=== PATIENT | female | born 1950 | race Caucasian/White ===

== ENCOUNTER → 2020-01-09 09:46 | Outpatient (CLI) | payer MEDICARE, SELFPAY ==
--- NOTE | ~2020-01-09 | XR_ITS ---
EXAMINATION: XR knee LT 3V DATE: 01/09/2020 10:33 INDICATION: Bilateral primary osteoarthritis of knee. TECHNIQUE: 3 views of left knee were obtained. COMPARISON: None. FINDINGS: Bone alignment is normal. No fracture. There is severe osteoarthritis of medial compartment and mild osteoarthritis of lateral and patellofemoral compartments. There is a small knee joint effu lonnie. IMPRESSION: 1. Severe left knee osteoarthritis. 2. Small left knee joint effusion. Reviewed, dictated and finalized at location B.
--- NOTE | ~2020-01-09 | XR_ITS ---
EXAMINATION: XR knee RT 3V DATE: 01/09/2020 10:33 INDICATION: Bilateral primary osteoarthritis of knee. TECHNIQUE: 3 views of right knee were obtained. COMPARISON: None. FINDINGS: Bone alignment is normal. No fracture. There is mild osteoarthritis of medial compartment a nd severe osteoarthritis of lateral and patellofemoral compartments. No knee joint effusion. IMPRESSION: 1. Severe right knee osteoarthritis. Reviewed, dictated and finalized at location B.
== END ==
PROVIDERS: PCP Internal Medicine; Visit Provider Internal Medicine
DX: M17.0 Bilateral primary osteoarthritis of knee (principal); M25.462 Effusion, left knee
CPT/HCPCS: 73562

== ENCOUNTER 2020-01-24 07:34 | Outpatient (CLI) | payer MEDICARE, SELFPAY ==
--- NOTE | ~2020-01-24 | MM_ITS ---
EXAMINATION: MM screening reagan BI w rosalba HISTORY: Screening mammogram, family history of breast cancer in her sister. TECHNIQUE: Craniocaudal and mediolateral oblique 3-D tomosynthesis images were obtained and synthetic 2-D images were generated. CAD analysis was submitted and interpreted. COMPARISON: 12/18/2018, 12/08/2017, 11/09/2016 BREAST PARENCHYMAL COMPOSITION: There are scattered areas of fibroglandular density. FINDINGS: Scattered benign-appearing calcifications are present. There is no evidence of suspicious m ass, calcification, or architectural distortion to suggest malignancy in either breast. There has bee n no suspicious interval change. IMPRESSION: 1. No mammographic evidence of malignancy. 2. Recommend routine screening mammography in one year. BI-RADS Category 2: Benign finding(s). Reviewed, dictated and finalized at location A.
== END 2020-01-24 07:35 | disposition home or self-care (01) ==
PROVIDERS: PCP Internal Medicine; Visit Provider Obstetrics & Gynecology Gynecology
DX: Z12.31 Encounter for screening mammogram for malignant neoplasm of breast (principal)
CPT/HCPCS: 77063; 77067

== ENCOUNTER 2020-01-30 13:00 | Emergency (ER) | payer MEDICARE, SELFPAY ==
[2020-01-30 13:13] VITALS: BP 151/67; PULSE 62; RESP 12; TEMP 37.1; O2SAT 100
--- NOTE | 2020-01-30 13:20 | ED.GENADULT ---
HPI - General Adult General Chief complaint: Skin/Abscess/Foreign Body Stated complaint: insect bite Time Seen by Provider: 01/30/20 13:20 Source: patient and RN notes reviewed Mode of arrival: ambulatory Limitations: no limitations History of Present Illness HPI narrative: 69-year-old female presents with complaints of insect bite, discoloration, swelling, and itching to LT 3rd (middle) finger for 1 day. Karolina says she was outside picking up waste and believes she was bitten by an insect on LT 3rd finger. Her spouse stuck finger this morning with a sterile needle and obtained some fluid (no further drainage) with improvement. Karolina's friend instructed her to seek further care. Denies new detergent, personal hygiene products or laundry detergents. No new foods or medications. No burning or bleeding. Denies fever, chills, headaches, weakness, myalgia, facial swelling, or tongue swelling. Denies dyspnea. Remains active. The patient reports she have not been diagnosed with COVID-19. The patient reports she is not waiting for the results of a COVID-19 lab test. The patient reports she do not have fever, chills, or fatigue. Patient reports she do not have any rhinorrhea, congestion, sore throat, loss of taste, nausea, vomiting, abdominal pain, and diarrhea. Tolerating po intake well. Denies recent traveling. Denies concerns for COVID-19 or exposures been home with limited outdoor exposure except for essential household needs and return home. At this time, patient is not suspected of having COVID-19. Some parts of this dictation were generated by voice recognition software and may contain typographical and/or grammatical inaccuracies. Related Data Home Medications Medication Instructions Recorded Confirmed ergocalciferol (vitamin D2) 50,000 unit PO 05/10/19 unit tablet Allergies Allergy/AdvReac Type Severity Reaction Status Date / Time No Known Allergies Allergy Verified 01/09/20 09:05 Review of Systems Review of Systems: Narrative: CONSTITUTIONAL: Denies fever, chills, sweats. EYES: Denies visual changes, redness, discharge. ENT: Denies rhinorrhea, congestion, sore throat, otalgia. CARDIOVASCULAR: Denies chest pain, palpitations, edema. RESPIRATORY: Denies dyspnea, wheezing, cough. GASTROINTESTINAL: Denies abdominal pain, nausea, vomiting, diarrhea. GENITOURINARY: Denies dysuria, hematuria, abnormal discharge. SKIN: Denies rash. Complaints of insect bite, discoloration, swelling, and itching to LT 3rd (middle) finger. MUSCULOSKELETAL: Denies acute back pain, joint pain, or myalgia. NEUROLOGIC: Denies numbness or focal weakness. PSYCHIATRIC: Denies anxiety or depression. All other systems reviewed are negative, except as documented in HPI and below. [facility] Past Medical History Medical History (Updated 01/31/20 @ 05:09 by PAULA Johnson) Bunion of great toe of right foot delivery delivered X1 Chronic low back pain Depression Elevated blood pressure reading in office without diagnosis of hypertension Hematuria History of hysteroscopy IFG (impaired fasting glucose) Mixed hyperlipidemia Osteoarthritis Osteoarthritis of both hips Post menopausal problems SI (sacroiliac) joint inflammation Surgical History Surgical History (Updated 01/31/20 @ 05:09 by PAULA Johnson) H/O section History of bunionectomy of right great toe History of cystoscopy History of dilation and curettage Family History Family History (Updated 01/30/20 @ 13:50 by PAULA Johnson) Father , Lung cancer-smoker Family history of malignant neoplasm, Onset Age: 57 Mother Family history of thoracic aortic aneurysm, Onset Age: 57 Acute myocardial infarction Social History Social History (Updated 01/30/20 @ 13:51 by PAULA Johnson) Smoking status: Never smoker Alcohol intake: current Substance use: never Living arrangements: with family
== END 2020-01-30 13:39 | disposition home or self-care (01) ==
PROVIDERS: Emergency Provider Nurse Practitioner Family; PCP Internal Medicine
DX: L03.012 Cellulitis of left finger (principal); S60.463A Insect bite (nonvenomous) of left middle finger, initial encounter; W57.XXXA Bitten or stung by nonvenomous insect and other nonvenomous arthropods, initial encounter; E78.2 Mixed hyperlipidemia; M19.90 Unspecified osteoarthritis, unspecified site; M16.0 Bilateral primary osteoarthritis of hip
CPT/HCPCS: 99213; G0463

== ENCOUNTER → 2020-08-18 00:48 | Outpatient (CLI) | payer MEDICARE, SELFPAY ==
[2020-08-18 20:23] LABS: SARS-CoV-2 RNA PCR Negative
== END ==
PROVIDERS: PCP Internal Medicine; Visit Provider Internal Medicine Gastroenterology
DX: Z01.812 Encounter for preprocedural laboratory examination (principal); Z20.822 Contact with and (suspected) exposure to COVID-19
CPT/HCPCS: C9803; U0003; U0005

== ENCOUNTER 2020-08-21 01:06 | Day surgery (SDC) | payer MEDICARE, SELFPAY ==
[2020-08-11 11:32] VITALS: BMI 26.4
[2020-08-21 12:49] VITALS: BP 154/69; PULSE 72; RESP 16; TEMP 37; O2SAT 100; BMI 26.9
[2020-08-21] MEDS: LACTATED RINGERS 1,000 ML 150 ML IV CONT (13:00)
--- NOTE | 2020-08-21 13:38 | WPDANESEPPF ---
Anes - Initial Pre Proc Eval Procedure: Operation Date: 08/21/20 14:00 Proposed Procedures p Screening Colonoscopy - Tad Kaiser MD Date/Time: 08/21/20 13:38 Surgeon: Tad Kaiser MD Pre Op Diagnosis: neoplasm screening Patient Data Age: 70 Gender: F Height: 5 ft 4 in Weight: 71 kg Last Vital Signs Temp 98.6 F 08/21/20 12:49 Pulse 72 08/21/20 12:49 Resp 16 08/21/20 12:49 BP 154/69 H 08/21/20 12:49 Pulse Ox 100 08/21/20 12:49 Allergies Allergy/AdvReac Type Severity Reaction Status Date / Time No Known Allergies Allergy Verified 08/21/20 12:49 Home Medications Medication Instructions Recorded Confirmed Type ergocalciferol (vitamin D2) 50,000 12,500 unit PO DAILY 05/10/19 08/21/20 History unit tablet rosuvastatin 5 mg tablet 5 mg PO DAILY #30 tablet 04/08/20 08/21/20 Rx biotin 10,000 mcg-keratin 100 mg 0 tablet PO DAILY 07/11/20 08/21/20 History tablet norethindrone acetate 1 mg-ethinyl 1 tablet PO DAILY 07/11/20 08/21/20 History estradiol 5 mcg tablet oxybutynin chloride 5 mg tablet 5 mg PO DAILY 07/11/20 08/21/20 History sertraline 100 mg tablet 150 mg PO DAILY #1 tablet 07/11/20 08/21/20 Rx sodium,potassium,mag sulfates 17.5 See Rx Instructions PO .COMPLEX 07/28/20 08/21/20 Rx gram-3.13 gram-1.6 gram oral soln #354 ml ffkjgloidwrs-zip-kvsk-FA-vit K 1 tablet PO DAILY 08/11/20 08/21/20 History [Adults Multivitamin] terbinafine HCl 250 mg PO DAILY 08/11/20 08/21/20 History Patient hx anesthesia problems: none Family hx anesthesia problems: none PMFSH Past Medical History Medical History (Updated 07/11/20 @ 09:18 by Vitaliy Hdz MD) Bunion of great toe of right foot delivery delivered X1 Chronic low back pain Depression Elevated blood pressure reading in office without diagnosis of hypertension Hematuria History of hysteroscopy IFG (impaired fasting glucose) Mixed hyperlipidemia Osteoarthritis Osteoarthritis of both hips Post menopausal problems SI (sacroiliac) joint inflammation Surgical History Surgical History H/O section History of bunionectomy of right great toe History of cystoscopy History of dilation and curettage Family History Family History Father , Lung cancer-smoker Family history of malignant neoplasm, Onset Age: 57 Mother Family history of thoracic aortic aneurysm, Onset Age: 57 Acute myocardial infarction Social History Social History Smoking status: Never smoker Alcohol intake: never Substance use: never Substance use type: does not use Living arrangements: with family Gender identity (if verbalized by the patient): Female Spiritual care concerns: No Anes - Eval Final PreProcedure Day of Procedure 08/21/20 13:38 Patient weight: normal Heart: regular rate and rhythm Lungs: clear to auscultation Airway: Mallampati scale class II Neurological: alert and oriented Last oral intake: >/= 8 hours ASA classification: II Emergent: no Anesthetic plan: proceed Anesthesia type and monitoring: general GIVS and standard monitoring Informed Consent: The patient's anesthetic plan and its attendant risks and benefits were discussed with the patient/family/POA. Questions were solicited and answers provided to the satisfaction of the patient/family/POA.
--- NOTE | 2020-08-21 13:50 | PM.HPGS ---
History of Present Illness History of Present Illness Consent: Risks, benefits, and alternatives have been discussed and questions answered. Patient agrees to proceed with procedure. Chief complaint: neoplasm screening Narrative: Karolina Rocha is a 70 year old female here for screening colonoscopy, last one 2010 Review of Systems Constitutional: Constitutional: Denies headache(s) and Denies weakness Eyes: Eyes: Denies blurry vision ENT: Reports Normal hearing present, Denies headache(s) and Denies neck pain Cardiovascular: Cardiovascular: Denies chest pain and Denies dyspnea Respiratory: Respiratory: Denies dyspnea Gastrointestinal: Gastrointestinal: Reports no additional gastrointestinal complaints Genitourinary: Genitourinary: Denies dysuria Musculoskeletal: Musculoskeletal: Denies neck pain Integumentary/Breasts: Skin/Breast: Denies dry skin Neurologic: Reports Normal hearing present, Denies headache(s) and Denies weakness Psychiatric: Psychiatric: Denies anxiety Endocrine: Endocrine: Denies change in body appearance Hematologic/Lymphatic: Hematologic/Lymphatic: Denies easy bleeding Allergic/Immunologic: Allergic/Immunologic: Denies urticaria PMFSH Past Medical History Medical History (Updated 07/11/20 @ 09:18 by Vitaliy Hdz MD) Bunion of great toe of right foot delivery delivered X1 Chronic low back pain Depression Elevated blood pressure reading in office without diagnosis of hypertension Hematuria History of hysteroscopy IFG (impaired fasting glucose) Mixed hyperlipidemia Osteoarthritis Osteoarthritis of both hips Post menopausal problems SI (sacroiliac) joint inflammation Surgical History Surgical History H/O section History of bunionectomy of right great toe History of cystoscopy History of dilation and curettage Family History Family History Father , Lung cancer-smoker Family history of malignant neoplasm, Onset Age: 57 Mother Family history of thoracic aortic aneurysm, Onset Age: 57 Acute myocardial infarction Social History Social History Smoking status: Never smoker Alcohol intake: never Substance use: never Substance use type: does not use Living arrangements: with family Gender identity (if verbalized by the patient): Female Spiritual care concerns: No Meds Home Medications and Allergies Home Medications Medication Instructions Recorded Confirmed Type ergocalciferol (vitamin D2) 50,000 12,500 unit PO DAILY 05/10/19 08/21/20 History unit tablet rosuvastatin 5 mg tablet 5 mg PO DAILY #30 tablet 04/08/20 08/21/20 Rx biotin 10,000 mcg-keratin 100 mg 0 tablet PO DAILY 07/11/20 08/21/20 History tablet norethindrone acetate 1 mg-ethinyl 1 tablet PO DAILY 07/11/20 08/21/20 History estradiol 5 mcg tablet oxybutynin chloride 5 mg tablet 5 mg PO DAILY 07/11/20 08/21/20 History sertraline 100 mg tablet 150 mg PO DAILY #1 tablet 07/11/20 08/21/20 Rx sodium,potassium,mag sulfates 17.5 See Rx Instructions PO .COMPLEX 07/28/20 08/21/20 Rx gram-3.13 gram-1.6 gram oral soln #354 ml sdhjrjfayjxz-xqk-qxbi-FA-vit K 1 tablet PO DAILY 08/11/20 08/21/20 History [Adults Multivitamin] terbinafine HCl 250 mg PO DAILY 08/11/20 08/21/20 History Allergies Allergy/AdvReac Type Severity Reaction Status Date / Time No Known Allergies Allergy Verified 08/21/20 12:49 Vital Signs Vital Signs - 24 hr 08/21/20 12:49 Temperature 98.6 F Pulse Rate 72 Respiratory Rate 16 Blood Pressure 154/69 H Pulse Oximetry 100 Exam Const: General: comfortable and no acute distress HENMT: General nose exam: Normal nares present Eyes: General: appearance normal, both eyes and all related structures Neck: Neck: no JVD Resp: Auscultation: clear to auscu
[2020-08-21 14:17] VITALS: BP 139/69; PULSE 61; RESP 18; O2SAT 100
[2020-08-21 14:27] VITALS: BP 128/98; PULSE 67; RESP 25; O2SAT 100
== END 2020-08-21 14:58 | disposition home or self-care (01) ==
PROVIDERS: PCP Internal Medicine; Visit Provider Internal Medicine Gastroenterology
PROC: 0DJD8ZZ Inspection of Lower Intestinal Tract, Via Natural or Artificial Opening Endoscopic (ICD-10-PCS; CPT 45378; principal; 2020-08-21 14:00)
DX: Z12.11 Encounter for screening for malignant neoplasm of colon (principal); K57.30 Diverticulosis of large intestine without perforation or abscess without bleeding; K64.8 Other hemorrhoids; E78.2 Mixed hyperlipidemia; F32.9 Major depressive disorder, single episode, unspecified
CPT/HCPCS: G0121; J2704; J7120

== ENCOUNTER 2020-10-10 17:31 | Emergency (ER) | payer MEDICARE, SELFPAY ==
--- NOTE | ~2020-10-10 | CT_ITS ---
EXAMINATION: CT abdomen pelvis w con EXAM DATE: 10/10/2020 20:39 INDICATION: LLQ abdominal pain . Diarrhea. TECHNIQUE: Spiral CT of the abdomen and pelvis was performed following intravenous injection of 100 m L Omnipaque 350. Axial, coronal and sagittal images of the abdomen and pelvis were reviewed. The do se-length product (DLP) for this examination was 406.27 mGy-cm. The exposure was tailored according to patient size (auto mA exposure control), and iterative reconstruction (ASIR) was used as additiona l dose reduction technique. Comparison is made to prior examination from 09/18/2014. FINDINGS: The liver, spleen, adrenal glands and pancreas are unremarkable. Gallbladder is unremarkab le. No biliary obstruction. Portal and splenic veins are patent. Kidneys enhance symmetrically. T here is no hydronephrosis. The uterus is unremarkable. The bladder is undistended at time of imag ing. There is no retroperitoneal or pelvic lymphadenopathy. The appendix is not positively visualized. There is no pericecal inflammatory change to suggest appe ndicitis. The stomach and small bowel are unremarkable. There is severe transverse, descending and moderate sigmoid colonic wall edema. No pneumatosis. Colitis, most likely infectious. Very minimal a rteriosclerotic disease identified. No free intraperitoneal gas. The heart is normal in size. Th ere are no pericardial or pleural effusions. The lung bases are unremarkable. There are no osteobla stic or osteolytic lesions identified. IMPRESSION: Left hemicolonic colitis, most likely infectious. Reviewed, dictated and finalized at location A.
[2020-10-10 17:50] VITALS: BP 127/59; PULSE 110; RESP 20; TEMP 37.4; O2SAT 99
[2020-10-10 18:06] LABS: Hematocrit 39.9 % (37.0-47.0); Hemoglobin 13.3 g/dL (12.0-15.0); Mean Corpuscular HGB Conc 33.3 g/dl (32-36); Mean Corpuscular Hemoglobin 30.4 pg (26-34); Mean Corpuscular Volume 91.3 fl (80-100); Mean Platelet Volume 9.5 fl (7.4-10.4); Platelet Count Result 167 k/mm3 (150-375); Red Blood Count 4.37 M/mm3 (4.2-5.4); Red Cell Distribution Width 13.2 % (11.5-14.5); White Blood Count 9.6 K/mm3 (4.5-10.0)
[2020-10-10 18:18] LABS: Alanine Aminotransferase 18 U/L (4-35); Albumin Level 4.3 g/dL (3.5-5.1); Alkaline Phosphatase 72 U/L (38-126); Anion Gap 11 mmol/L (8-16); Aspartate Amino Transferase 33 U/L (14-36); Bilirubin,Total 0.4 mg/dL (0.2-1.3); Blood Urea Nitrogen 15 mg/dL (7-17); Calcium 9.3 mg/dL (8.4-10.2); Carbon Dioxide 23 mmol/L (22-30); Chloride 97 mmol/L (98-107); Estimated CRCL calculation 40 ml/min; Estimated Glomerular Filt Rate 49; Glucose 122 mg/dL (65-105); Lipase 49 U/L (23-300); Potassium 2.9 mmol/L (3.4-5.0); Sodium 131 mmol/L (137-145)
[2020-10-10 18:25] LABS: Band Neutrophils Percent 11 % (0-6); Lymphocytes Absolute Manual 0.76 K/mm3 (1.1-4.5); Monocytes Absolute Manual 1.34 K/mm3 (0.1-0.90); Monocytes Percent Manual 14 % (3-9); Neutrophils Absolute Manual 7.48 K/mm3 (1.7-7.2); Neutrophils Percent Manual 67 % (46-73); Total Cells Counted 100
[2020-10-10 18:26] LABS: Platelet Estimate Adequate (Adequate)
[2020-10-10 20:06] VITALS: BP 131/70; PULSE 104; PULSE 106; RESP 22; TEMP 37.6; O2SAT 99
[2020-10-10 20:12] VITALS: BP 142/68; PULSE 108
[2020-10-10 20:14] VITALS: BP 112/69; PULSE 114
[2020-10-10] MEDS: SODIUM CHLORIDE 0.9% IV 1,000 ML 999 ML IV CONT (20:16)
[2020-10-10] MEDS: ONDANSETRON INJ 4 MG/2 ML VIAL IV PUSH (20:19)
[2020-10-10] MEDS: DICYCLOMINE HCL INJ 20 MG/2 ML VIAL IM (20:20)
--- NOTE | 2020-10-10 21:22 | ED.GENADULT ---
HPI - General Adult General Chief complaint: Nausea/Vomiting/Diarrhea Stated complaint: n/v/d, fever Time Seen by Provider: 10/10/20 19:38 History of Present Illness HPI narrative: Patient 70-year-old female who presents the emergency department with chief complaint of abdominal pain nausea and vomiting and diarrhea. Patient states been going on for approximately 2 days states that she feels weak and just feels very uncomfortable. Patient denies fever denies chills reports that she has had a large amount of diarrhea. Patient also reports has had some vomiting as well with this. Patient reports symptoms are not worsened by anything or they improved by anything Related Data Home Medications Medication Instructions Recorded Confirmed ergocalciferol (vitamin D2) 50,000 12,500 unit PO DAILY 05/10/19 08/21/20 unit tablet biotin 10,000 mcg-keratin 100 mg 0 tablet PO DAILY 07/11/20 08/21/20 tablet norethindrone acetate 1 mg-ethinyl 1 tablet PO DAILY 07/11/20 08/21/20 estradiol 5 mcg tablet oxybutynin chloride 5 mg tablet 5 mg PO DAILY 07/11/20 08/21/20 fngneesrsynh-iku-clmn-FA-vit K 1 tablet PO DAILY 08/11/20 08/21/20 [Adults Multivitamin] terbinafine HCl 250 mg PO DAILY 08/11/20 08/21/20 Allergies Allergy/AdvReac Type Severity Reaction Status Date / Time No Known Allergies Allergy Verified 08/21/20 12:49 Review of Systems Review of Systems: Narrative: A 10 system review of systems was completed on the patient and is negative except for what is stated in the HPI. Nursing and ancillary documentation was reviewed. [facility], [facility] Past Medical History Medical History Bunion of great toe of right foot delivery delivered X1 Chronic low back pain Depression Elevated blood pressure reading in office without diagnosis of hypertension Hematuria History of hysteroscopy IFG (impaired fasting glucose) Mixed hyperlipidemia Osteoarthritis Osteoarthritis of both hips Post menopausal problems SI (sacroiliac) joint inflammation Surgical History Surgical History H/O section History of bunionectomy of right great toe History of cystoscopy History of dilation and curettage Family History Family History Father , Lung cancer-smoker Family history of malignant neoplasm, Onset Age: 57 Mother Family history of thoracic aortic aneurysm, Onset Age: 57 Acute myocardial infarction Social History Social History Smoking status: Never smoker Alcohol intake: never Substance use: never Substance use type: does not use Gender identity (if verbalized by the patient): Female Spiritual care concerns: No Exam Narrative: Exam Narrative: GENERAL: Well-appearing, well-nourished, and in no acute distress. HEAD: Normocephalic, atraumatic. EYES: PERRLA and EOMI. ENT: Nares clear, no rhinorrhea or epistaxis. Mucous membranes moist. NECK: Supple. CHEST: Clear to auscultation. No respiratory distress. HEART: Regular rate and rhythm. No murmur heard. Normal peripheral pulses. ABDOMEN: Soft, tender to palpation in the left lower quadrant, nondistended, normal active bowel sounds. EXTREMITIES: Normal range of motion. No edema. SKIN: Warm, dry, no rash. NEURO: No focal deficits. Alert and oriented x3. PSYCH: Normal mood and affect. Course Vital Signs Vital signs: Vital Signs Temperature 37.4 C 10/10/20 17:50 Pulse Rate 110 H 10/10/20 17:50 Respiratory Rate 20 10/10/20 17:50 Blood Pressure 127/59 L 10/10/20 17:50 Pulse Oximetry 99 10/10/20 17:50 Temperature 37.6 C H 10/10/20 20:06 Pulse Rate 114 H 10/10/20 20:14 Respiratory Rate 22 H 10/10/20 20:06 Blood Pressure 112/69 10/10/20 20:14 Pulse Oximetry 99
--- NOTE | 2020-10-10 21:51 | PC.NURSE ---
pt complaining of potassium burning and provided ice pack. States it feels better at this time.
[2020-10-11] MEDS: metroNIDAZOLE 250 MG TABLET 500 MG PO (00:13)
[2020-10-11 00:14] LABS: Add Urine Microscopic? YES; Appearance Urine Clear (Clear); Bilirubin Urine Negative (Negative); Blood Urine 3+ (Negative); Color Urine Yellow (Yellow); Glucose Urine UA Negative (Negative); Ketones Urine 1+ mg/dL (Negative); Leukocyte Esterase Ur Negative LEU/UL (Negative); Mucus Urine Rare /lpf; Nitrate Urine Negative (Negative); Protein Urine 1+ mg/dL (Negative); RBC Urine 51-75 /hpf (0-2); Squamous Epithelial Cell Urine Occasional /hpf (Few); Urobilinogen Urine Negative mg/dL (<2.0)
[2020-10-11] MEDS: CIPROFLOXACIN 500 MG TAB PO (00:14)
[2020-10-11 00:16] LABS: Specific Grav Ur 1.048 (1.001-1.035)
== END 2020-10-11 00:33 | disposition home or self-care (01) ==
PROVIDERS: Emergency Medicine; Emergency Provider Emergency Medicine; PCP Internal Medicine
DX: K52.9 Noninfective gastroenteritis and colitis, unspecified (principal); E87.6 Hypokalemia; E78.2 Mixed hyperlipidemia; M16.0 Bilateral primary osteoarthritis of hip
CPT/HCPCS: 36415; 74177; 80053; 81001; 83690; 85025; 96361; 96365; 96372; 96375; 99284; A9270; J0500; J2405; J3480; J7030; J7060; Q9967

== ENCOUNTER 2020-12-05 11:02 | Inpatient (IN) | payer MEDICARE, SELFPAY ==
[2020-12-05 11:33] VITALS: BP 103/53; PULSE 80; RESP 16; TEMP 36.4; O2SAT 99
--- NOTE | 2020-12-05 12:19 | ECG_ITS ---
Measurements Intervals [place] Rate: 74 P: 58 VT: 147 QRS: 16 QRSD: 78 T: 29 QT: 463 QTc: 517 Interpretive Statements SINUS RHYTHM INCOMPLETE RIGHT BUNDLE BRANCH BLOCK PROLONGED QT INTERVAL BASELINE WANDER- AVL, AVF ABNORMAL ECG Electronically Signed On 12-05-2020 13:12:43 CDT by Senthil Rincon D.O.
[2020-12-05 12:57] LABS: Basophils Percent Auto 0.2 % (0.2-1.2); Hematocrit 32.5 % (37.0-47.0); Hemoglobin 10.8 g/dL (12.0-15.0); Immature Granulocyte Absolute 0.51 K/mm3 (0.00-0.031); Immature Granulocyte Percent A 3.2 % (0-0.5); Lymphocytes Absolute Auto 1.18 K/mm3 (0.9-3.2); Lymphocytes Percent Auto 7.3 % (18.3-44.2); Mean Corpuscular HGB Conc 33.2 g/dl (32-36); Mean Corpuscular Hemoglobin 30.2 pg (26-34); Mean Corpuscular Volume 90.8 fl (80-100); Mean Platelet Volume 9.7 fl (7.4-10.4); Monocytes Absolute Auto 2.1 K/mm3 (0.1-0.6); Monocytes Percent Auto 13.2 % (2.6-8.5); Neutrophils Absolute Auto 12.3 K/mm3 (1.3-6.7); Neutrophils Percent Auto 76.1 % (45.5-73.1); Platelet Count Result 228 k/mm3 (150-375); Red Blood Count 3.58 M/mm3 (4.2-5.4); Red Cell Distribution Width 14.5 % (11.5-14.5); White Blood Count 16.1 K/mm3 (4.5-10.0)
--- NOTE | 2020-12-05 13:01 | ED.NAVMDI ---
HPI - Nausea/Vomiting/Diarrhea General Chief complaint: Nausea/Vomiting/Diarrhea Stated complaint: sent by GI doc, hypotension and diarrhea Time Seen by Provider: 12/05/20 12:16 Source: patient, family and RN notes reviewed Limitations: no limitations History of Present Illness HPI Narrative: Patient is 70 years old white female presents with nausea, vomiting and diarrhea, also generalized weakness, lightheadedness and dizziness. History of C. difficile in the last few weeks, finished a course of vancomycin 6 days ago, the diarrhea is back again. Patient also complaining of fever and chills. Patient referred to the emergency room by Dr. Rae for evaluation and admission. Related Data Home Medications Medication Instructions Recorded Confirmed ergocalciferol (vitamin D2) 50,000 12,500 unit PO WEEKLY 05/10/19 11/19/20 unit tablet biotin 10,000 mcg-keratin 100 mg 1 tablet PO DAILY 07/11/20 11/19/20 tablet norethindrone acetate 1 mg-ethinyl 1 tablet PO DAILY 07/11/20 11/19/20 estradiol 5 mcg tablet oxybutynin chloride 5 mg tablet 5 mg PO DAILY 07/11/20 11/19/20 mwpkarutmxrl-mgi-csbd-FA-vit K 1 tablet PO DAILY 08/11/20 11/19/20 [Adults Multivitamin] bupropion HCl 150 mg PO DAILY 11/19/20 11/19/20 terbinafine HCl 250 mg PO DAILY 11/19/20 11/19/20 Allergies Allergy/AdvReac Type Severity Reaction Status Date / Time No Known Allergies Allergy Verified 12/05/20 10:36 Review of Systems Review of Systems: Narrative: CONSTITUTIONAL: Denies fever, chills, or sweats. EYES: Denies visual changes, redness, or discharge. ENT: Denies rhinorrhea, congestion, sore throat, or otalgia. CARDIOVASCULAR: Denies chest pain, palpitations, or edema. RESPIRATORY: Denies cough or dyspnea. GASTROINTESTINAL: Denies abdominal pain, nausea, vomiting, or diarrhea. GENITOURINARY: Denies dysuria or hematuria. SKIN: Denies rash or itching. MUSCULOSKELETAL: Denies back pain, joint pain, or myalgia. NEUROLOGIC: Denies headache, numbness, or weakness. PSYCHIATRIC: Denies anxiety or depression. [facility] Past Medical History Medical History Bunion of great toe of right foot delivery delivered X1 Chronic low back pain Depression Elevated blood pressure reading in office without diagnosis of hypertension Hematuria IFG (impaired fasting glucose) Mixed hyperlipidemia Osteoarthritis Osteoarthritis of both hips Post menopausal problems SI (sacroiliac) joint inflammation Surgical History Surgical History H/O section History of bunionectomy of right great toe History of cystoscopy History of dilation and curettage History of hysteroscopy Family History Family History Father , Lung cancer-smoker Family history of malignant neoplasm, Onset Age: 57 Mother Family history of thoracic aortic aneurysm, Onset Age: 57 Acute myocardial infarction Social History Social History Second hand tobacco smoke exposure: No Alcohol intake: former Alcohol use details: Social Substance use: never Substance use type: does not use Gender identity (if verbalized by the patient): Female Spiritual care concerns: No Exam Narrative: Exam Narrative: General appearance: Well-developed, well-nourished, ill looking Skin: Normal color Head: Normocephalic, nontraumatic Eyes: Clear conjunctiva ENT: Oropharynx normal, ears normal, nose normal Neck: Supple, nontender Chest and respiratory: Airway patent, no respiratory distress, no accessory muscle use Heart: Regular rate/rhythm Abdomen: Soft, nontender, no organomegaly, hyperactive bowel sounds Vascular: Normal peripheral pulses, normal capillary refill. Musculoskeletal: Normal range of motion, nontender back Neurologic: Alert and oriented ?3, [employer] is no
[2020-12-05] MEDS: SODIUM CHLORIDE 0.9% IV 1,000 ML 999 ML IV CONT ×2 (13:11→13:12)
[2020-12-05 13:14] LABS: Lactic Acid Reflex 1.3 mmol/L (0.7-2.1)
[2020-12-05 13:15] LABS: Alanine Aminotransferase 30 U/L (4-35); Albumin Level 3.8 g/dL (3.5-5.1); Alkaline Phosphatase 63 U/L (38-126); Anion Gap 11 mmol/L (8-16); Aspartate Amino Transferase 49 U/L (14-36); Bilirubin,Total 1.5 mg/dL (0.2-1.3); Blood Urea Nitrogen 21 mg/dL (7-17); Calcium 8.8 mg/dL (8.4-10.2); Carbon Dioxide 21 mmol/L (22-30); Chloride 102 mmol/L (98-107); Estimated CRCL calculation 26 ml/min; Estimated Glomerular Filt Rate 34; Glucose 105 mg/dL (65-105); Lipase 57 U/L (23-300); Potassium 2.9 mmol/L (3.4-5.0); Sodium 134 mmol/L (137-145)
[2020-12-05 13:28] LABS: Add Urine Microscopic? YES; Appearance Urine Cloudy (Clear); Bacteria Urine Trace /hpf; Bilirubin Urine Negative (Negative); Blood Urine 2+ (Negative); Color Urine Amber (Yellow); Glucose Urine UA Negative (Negative); Hyaline Casts Urine 20-29 /lpf; Ketones Urine Negative (Negative); Leukocyte Esterase Ur Trace LEU/UL (Negative); Mucus Urine Rare /lpf; Nitrate Urine Negative (Negative); Protein Urine 1+ mg/dL (Negative); RBC Urine 21-50 /hpf (0-2); Squamous Epithelial Cell Urine Many /hpf (Few); Urobilinogen Urine Negative mg/dL (<2.0)
[2020-12-05] MEDS: POTASSIUM CHLORIDE 20 MEQ TABLET 40 MEQ PO (14:27)
[2020-12-05 14:31] VITALS: BP 113/55; PULSE 81; RESP 16; O2SAT 100
[2020-12-05] MEDS: SODIUM CHLORIDE 0.9% IV 1,000 ML 200 ML IV CONT ×2 (15:35→20:28)
--- NOTE | 2020-12-05 16:05 | ADMGEN ---
This patient, Karolina Rocha, was admitted to [facility] Surg Room 301-01. Patient/family oriented to hospital policies and general routines including ID bracelet, bed and alarms, visiting hours, pain management, procedures, bathroom and other care routines, personal items, smoking policy, room service/diet, and visiting hours. Information on how to activate the Rapid Response Team has been discussed. Patient/Family are encouraged to report perceived risks to care and to ask questions if they do not understand what they are told or what they should do.
[2020-12-05 16:10] VITALS: BMI 25.3
[2020-12-05 16:11] VITALS: BP 153/60; PULSE 66; RESP 18; TEMP 36.7; O2SAT 92
[2020-12-05] MEDS: POTASSIUM CHLORIDE 20 MEQ PACKET (FOR LIQUID) 40 MEQ PO (17:19)
[2020-12-05 22:00] VITALS: BP 110/51; PULSE 90; RESP 20; TEMP 36.2; O2SAT 100
[2020-12-06] MEDS: SODIUM CHLORIDE 0.9% IV 1,000 ML 200 ML IV CONT ×3 (02:39→12:32)
--- NOTE | 2020-12-06 04:01 | PM.IMHP ---
H&P: HPI History of Present Illness Date/Time: 12/06/20 04:01 Chief Complaint: DIARRHEA Narrative: THIS IS A 70-YEAR-OLD FEMALE WITH PAST MEDICAL HISTORY SIGNIFICANT FOR GENERALIZED ANXIETY DISORDER, DYSLIPIDEMIA, OVER REACTIVE BLADDER, CLOSTRIDIUM DIFFICILE COLITIS. PATIENT COMES THROUGH THE EMERGENCY ROOM TODAY AFTER SHE HAS BEEN HAVING NUMERAL IS A BOWEL MOVEMENTS A DAY IN THE FORM OF DIARRHEA PATIENT JUST COMPLETED A COURSE OF VANCOMYCIN FOR THE CLOSTRIDIUM DIFFICILE HOWEVER HAS HAD A RELAPSE AND HAS NOT BEEN ABLE TO EAT WELL HAS HAD SOME NAUSEA AND VOMITING. NO FEVERS NO RIGORS NO CHILLS NO PAIN OR BURNING WITH URINATION NO COUGH NO SHORTNESS OF BREATH NO SPUTUM PRODUCTION NO RASH NO ACHES AND PAINS NO JOINT PAINS NO MUSCLE PAIN. PATIENT WAS SENT OVER BY DR. MORRIS FOR EVALUATION. PRELIMINARY WORKUP WAS SIGNIFICANT FOR POTASSIUM OF 2.5, WBC OF 16,000, CREATININE OF 1.5. Review of Systems Review of Systems: Narrative: DIARRHEA Constitutional: Constitutional: Denies chills, Denies fatigue, Denies fever(s) and Denies weakness Eyes: Eyes: Denies change in vision ENT: Denies nasal congestion, Denies nasal discharge and Denies nasal obstruction Cardiovascular: Cardiovascular: Denies irregular heart rhythm, Denies claudication, Denies radiating jaw, neck or arm pain, Denies palpitations and Denies dyspnea on exertion Respiratory: Respiratory: Denies cough, Denies dyspnea and Denies wheezing Gastrointestinal: Gastrointestinal: Reports abdominal pain, Reports diarrhea, Denies nausea and Denies vomiting Genitourinary: Genitourinary: Reports no additional female genitourinary complaints and Denies dysuria Musculoskeletal: Musculoskeletal: Reports no additional musculoskeletal complaints Integumentary/Breasts: Skin/Breast: Reports system reviewed and no additional complaints, except as docu Neurologic: Reports system reviewed and no additional complaints, except as documented Psychiatric: Psychiatric: Reports no additional psychiatric complaints Endocrine: Endocrine: Reports no additional endocrine complaints Hematologic/Lymphatic: Hematologic/Lymphatic: Reports no additional hematologic/lymphatic complaints Allergic/Immunologic: Allergic/Immunologic: Reports no additional allergic/immunologic complaints PMFSH Past Medical History Medical History Bunion of great toe of right foot delivery delivered X1 Chronic low back pain Depression Elevated blood pressure reading in office without diagnosis of hypertension Hematuria IFG (impaired fasting glucose) Mixed hyperlipidemia Osteoarthritis Osteoarthritis of both hips Post menopausal problems SI (sacroiliac) joint inflammation Surgical History Surgical History H/O section History of bunionectomy of right great toe History of cystoscopy History of dilation and curettage History of hysteroscopy Family History Family History Father , Lung cancer-smoker Family history of malignant neoplasm, Onset Age: 57 Mother Family history of thoracic aortic aneurysm, Onset Age: 57 Acute myocardial infarction Social History Social History Smoking status: Never smoker Second hand tobacco smoke exposure: No Alcohol intake: current Drinks per week: 1 Alcohol use details: Social Substance use: never Substance use type: does not use Gender identity (if verbalized by the patient): Female Sexual Orientation (if Verbalized by the Patient): Straight or Heterosexual Spiritual care concerns: No Meds Home Medications and Allergies Home Medications Medication Instructions Recorded Confirmed Type biotin 10,000 mcg-keratin 100 mg 1 tablet PO DAILY 07/11/20 12/05/20 History tablet norethindrone acetate 1 mg
[2020-12-06 06:00] VITALS: BP 109/56; PULSE 79; RESP 20; TEMP 36.3; O2SAT 100
[2020-12-06 06:22] LABS: Basophils Percent Auto 0.3 % (0.2-1.2); Eosinophils Absolute Auto 0.1 K/mm3 (0-0.3); Eosinophils Percent Auto 0.8 % (0-4.4); Hematocrit 29.6 % (37.0-47.0); Hemoglobin 9.1 g/dL (12.0-15.0); Immature Granulocyte Absolute 0.32 K/mm3 (0.00-0.031); Immature Granulocyte Percent A 2.7 % (0-0.5); Lymphocytes Absolute Auto 1.27 K/mm3 (0.9-3.2); Lymphocytes Percent Auto 10.8 % (18.3-44.2); Mean Corpuscular HGB Conc 30.7 g/dl (32-36); Mean Corpuscular Hemoglobin 29.3 pg (26-34); Mean Corpuscular Volume 95.2 fl (80-100); Monocytes Absolute Auto 1.3 K/mm3 (0.1-0.6); Monocytes Percent Auto 10.6 % (2.6-8.5); Neutrophils Absolute Auto 8.8 K/mm3 (1.3-6.7); Neutrophils Percent Auto 74.8 % (45.5-73.1); Platelet Count Result 182 k/mm3 (150-375); Red Blood Count 3.11 M/mm3 (4.2-5.4); Red Cell Distribution Width 15.1 % (11.5-14.5); White Blood Count 11.8 K/mm3 (4.5-10.0)
[2020-12-06 06:53] LABS: Anion Gap 9 mmol/L (8-16); Blood Urea Nitrogen 14 mg/dL (7-17); Calcium 7.3 mg/dL (8.4-10.2); Carbon Dioxide 16 mmol/L (22-30); Chloride 114 mmol/L (98-107); Estimated CRCL calculation 48 ml/min; Estimated Glomerular Filt Rate > 60; Glucose 73 mg/dL (65-105); Sodium 139 mmol/L (137-145)
[2020-12-06] MEDS: buPROPion HCL XL (24 HR) 150 MG TABCR 300 MG PO (08:24)
[2020-12-06] MEDS: POTASSIUM CHLORIDE 20 MEQ PACKET (FOR LIQUID) 40 MEQ PO (08:24)
[2020-12-06] MEDS: FIDAXOMICIN 200 MG TABLET PO ×2 (08:24→20:40)
[2020-12-06 10:03] VITALS: O2SAT 95
--- NOTE | 2020-12-06 12:52 | PM.IMPN ---
Progress Note: A&P Assessment and Plan (1) Colitis: Code(s): K52.9 - Noninfective gastroenteritis and colitis, unspecified Status: Acute Assessment and Plan: Evident on CT. Concerning for infectious etiology. She completed a course of p.o. vancomycin for C diff colitis 6 days prior to presentation without improvement. Afebrile with improving leukocytosis Discussed case with gastroenterology. Will discontinue PO vancomycin given lack of response and continue with PO Dificid. Cancel GI consult and will contact if any issues arise. C diff testing is pending add probiotic and banatrol dietary supplement (2) Acute hypokalemia: Code(s): E87.6 - Hypokalemia Status: Acute Assessment and Plan: secondary to GI losses continue p.o. KCl 40 mEq bid monitor BMP and adjust supplementation as needed check magnesium level (3) DIANE (acute kidney injury): Code(s): N17.9 - Acute kidney failure, unspecified Status: Acute Assessment and Plan: resolved. Creatinine 1.5 at presentation and has declined to 0.8 with IV fluid rehydration. This was prerenal in etiology secondary to dehydration from GI losses will decrease IV fluids to 65 ml/hr. she is tolerating p.o. intake monitor renal function (4) Hematuria, microscopic: Code(s): R31.29 - Other microscopic hematuria Status: Acute Assessment and Plan: Urine with 2+ blood and 21-50 WBC. She is asymptomatic. UA is actually improved from last in September. Urine culture pending May be due to dehydration/acute illness. Consider repeat UA upon overall improvement/resolution of infection Will need to consider urology referral if no improvement Subjective Date/time seen: 12/06/20 12:52 Interval history: Date of service: 12/06/20 Karolina Rocha is a 70-year-old female with a history of hyperlipidemia question, and chronic back pain who is seen in follow-up for colitis. She has been treated for C diff colitis which started in September 2020 and she has not had any improvement since. She is feeling okay today. She continues to have liquid brown stools. Reports were stool looks similar to tea or Coca-[employer]a. She has had 3 episodes of liquid stools today. She endorses lower abdominal cramping and bloating throughout her abdomen. She had chills this morning but has not had fevers. Denies nausea or vomiting. She was able to tolerate clear liquids this morning. She does have a vague headache but this seems to be improving. She occasionally gets lightheaded upon standing. She is able to get to the commode without difficulty. She feels that she has been weaker recently due to this illness. Denies dysuria or hematuria but notes that yesterday her urine was dark in color. She denies shortness of breath, cough, chest pain, or palpitations. Review of Systems Review of Systems: All systems reviewed & are unremarkable except as noted in HPI and below Exam Narrative: Exam Narrative: Patient is a well-nourished, well-appearing 70-year-old female appearing slightly younger than her stated age who is lying semi recumbent in bed. she appears comfortable and is in NARD. Neuro: awake, alert and oriented x4, speech clear, no focal neuro deficits noted HEENMT: normocephalic, atraumatic, EOMI, sclerae anicteric, moist oral mucosa Neck: supple, no lymphadenopathy Respiratory: clear to auscultation bilaterally, nonlabored breathing Cardio: regular rate, regular rhythm with S1-S2 Abdomen: nondistended, hyperactive bowel sounds, soft, minimally tender to palpation across lower abdomen, no rigidity or guarding : no suprapubic tenderness Extremities: no edema, erythema, or tenderness to palpation Skin: no rashes or lesions, warm and dry Psych: appropriate mood and affect, judgment and insight intact Objective Data Vital Signs Vital Signs: Vital Signs - 24 hr 12/05/20 14:31 12/05/20 16:11 12/05/20
[2020-12-06 13:58] LABS: Magnesium 1.8 mg/dL (1.6-2.3)
[2020-12-06 14:00] VITALS: BP 129/64; PULSE 76; RESP 18; TEMP 36.3; O2SAT 100
--- NOTE | 2020-12-06 14:06 | WPDGICN ---
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 - Continue oral vancomycin for now. - Await c-diff results. - Continue dificid. - Continue florastor probiotic. (2) Anemia: Code(s): D64.9 - Anemia, unspecified Status: Acute Assessment and Plan: anemia likely 2 to recurrent c-diff colitis. - Monitor H & H. - Anemia panel. GI Consult Note Consult date/time: 12/06/20 14:06 HPI: Karolina Rocha is a 70 year old female with a history of hyperlipidemia, Hypertension, Depression, Overactive bladder, chronic back pain, appendectomy, hammer toe surgery, , bladder sling, c- diff colitis who is seen in follow-up for diarrhea. She was origionally treated for C diff colitis which started Oct 15 2020. She initially went to ER and was given some abx for colitis and sent home. She was running fevers up to 103 at that time. She was finished that treatment and within a few days started with diarrhea again. She tested + c-diff again and then started on oral vancomycin pills. Just 3 days after that was finished she started with diarrhea. She went to see BREANNA Mg at Dr Rae office and was noted to be weak, dizzy and hypotensive so she was sent to the ER and got admitted for dehydration 2 to her diarrhea. She has lost about 12 pounds in 6 weeks. She reports no blood in her stools or heartburn or dysphagia. She continues to have liquid brown stools. with tenderness, lower abdominal cramping, and bloating throughout her abdomen. She had chills this morning but has not had fevers. Denies nausea or vomiting. She was able to tolerate clear liquids this morning. Her H & H 9 and 29 with WBC 11. C-Diff is Pending. She was started on oral vancomycin & dificid. She had a colonoscopy 6 weeks prior to all this diarrhea this year. There were no polyps. Review of Systems Constitutional: Constitutional: Reports weight loss Comments: 12 pounds 6 weeks Cardiovascular: Comments: NO Chest pain Respiratory: Respiratory: Reports no additional respiratory complaints Gastrointestinal: Gastrointestinal: Reports as per HPI Genitourinary: Genitourinary: Reports no additional female genitourinary complaints Musculoskeletal: Comments: weakness general Psychiatric: Comments: depression PMFSH Past Medical History Medical History Bunion of great toe of right foot delivery delivered X1 Chronic low back pain Depression Elevated blood pressure reading in office without diagnosis of hypertension Hematuria IFG (impaired fasting glucose) Mixed hyperlipidemia Osteoarthritis Osteoarthritis of both hips Post menopausal problems SI (sacroiliac) joint inflammation Surgical History Surgical History H/O section History of bunionectomy of right great toe History of cystoscopy History of dilation and curettage History of hysteroscopy Family History Family History Father , Lung cancer-smoker Family history of malignant neoplasm, Onset Age: 57 Mother Family history of thoracic aortic aneurysm, Onset Age: 57 Acute myocardial infarction Social History Social History Smoking status: Never smoker Second hand tobacco smoke exposure: No Alcohol intake: current Drinks per week: 1 Alcohol use details: Social Substance use: never Substance use type: does not use Gender identity (if verbalized by the patient): Female Sexual Orientation (if Verbalized by
[2020-12-06 15:36] LABS: Iron < 10 ug/dL (37-170)
[2020-12-06 16:14] LABS: Folic Acid > 20.0 ng/mL (2.76->20)
[2020-12-06 16:42] LABS: Percent Iron Saturation < 4 % (20-50)
[2020-12-06] MEDS: SACCHAROMYCES BOULARDII 250 MG CAPSULE PO (17:04)
[2020-12-06] MEDS: POTASSIUM CHLORIDE 20 MEQ PACKET (FOR LIQUID) PO (17:04)
--- NOTE | 2020-12-06 18:06 | PHAR ---
The patient's home med of Norethindrone Ac-Eth Estradiol [Fyavolv] 1-5 mg-mcg tablet has been verified.
[2020-12-06] MEDS: SERTRALINE HCL 50 MG TABLET 150 MG PO (20:40)
[2020-12-06 22:00] VITALS: BP 151/54; PULSE 81; RESP 20; TEMP 36.8; O2SAT 100
[2020-12-06] MEDS: SODIUM CHLORIDE 0.9% IV 1,000 ML 65 ML IV CONT (23:52)
[2020-12-07 06:00] VITALS: BP 145/69; PULSE 77; RESP 20; TEMP 36.4; O2SAT 99
[2020-12-07 07:08] LABS: Hematocrit 29.3 % (37.0-47.0); Hemoglobin 9.1 g/dL (12.0-15.0); Mean Corpuscular HGB Conc 31.1 g/dl (32-36); Mean Corpuscular Hemoglobin 29.4 pg (26-34); Mean Corpuscular Volume 94.5 fl (80-100); Mean Platelet Volume 10.2 fl (7.4-10.4); Platelet Count Result 213 k/mm3 (150-375); Red Cell Distribution Width 15.1 % (11.5-14.5); White Blood Count 7.4 K/mm3 (4.5-10.0)
[2020-12-07 07:28] LABS: Magnesium 1.8 mg/dL (1.6-2.3)
[2020-12-07] MEDS: FIDAXOMICIN 200 MG TABLET PO ×2 (08:18→20:20)
[2020-12-07] MEDS: buPROPion HCL XL (24 HR) 150 MG TABCR 300 MG PO (08:18)
[2020-12-07] MEDS: SACCHAROMYCES BOULARDII 250 MG CAPSULE PO ×2 (08:18→17:45)
[2020-12-07] MEDS: POTASSIUM CHLORIDE 20 MEQ PACKET (FOR LIQUID) PO ×2 (08:18→17:44)
[2020-12-07] MEDS: SERTRALINE HCL 50 MG TABLET 150 MG PO (08:22)
[2020-12-07 08:45] LABS: Alanine Aminotransferase 16 U/L (4-35); Alkaline Phosphatase 58 U/L (38-126); Aspartate Amino Transferase 23 U/L (14-36); Bilirubin,Total 0.2 mg/dL (0.2-1.3)
[2020-12-07] MEDS: PHENYLEPHRINE HCL/COCOA BUTTER SUPP.RECT (*BKC) 1 SUPP RECTAL (11:37)
--- NOTE | 2020-12-07 13:38 | PM.IMPN ---
Progress Note: A&P Assessment and Plan (1) Colitis: Code(s): K52.9 - Noninfective gastroenteritis and colitis, unspecified Status: Acute Assessment and Plan: Evident on CT. Concerning for infectious etiology. She completed a course of p.o. vancomycin for C diff colitis 6 days prior to presentation without improvement. Afebrile; leukocytosis resolved Continue PO Dificid Appreciate gastroenterology consultation C diff testing is pending Continue probiotic and banatrol dietary supplement (2) Acute hypokalemia: Code(s): E87.6 - Hypokalemia Status: Acute Assessment and Plan: secondary to GI losses continue p.o. KCl 20 mEq bid monitor BMP and adjust supplementation as needed (3) DIANE (acute kidney injury): Code(s): N17.9 - Acute kidney failure, unspecified Status: Acute Assessment and Plan: Resolved. Creatinine 1.5 at presentation and normalized with IV fluid rehydration. This was prerenal in etiology secondary to dehydration from GI losses Continue gentle IV fluid rehydration at 65 ml/hr given ongoing diarrhea. She is tolerating p.o. intake monitor renal function (4) Hematuria, microscopic: Code(s): R31.29 - Other microscopic hematuria Status: Acute Assessment and Plan: Urine with 2+ blood and 21-50 WBC. She is asymptomatic. UA is actually improved from last in September. Urine culture pending May be due to dehydration/acute illness. Consider repeat UA upon overall improvement/resolution of infection Will need to consider urology referral if no improvement Subjective Date/time seen: 12/07/20 13:38 Interval history: Date of service: 12/07/20 Karolina Rocha is a 70-year-old female with a history of hyperlipidemia question, and chronic back pain who is seen in follow-up for colitis. She has been treated for C diff colitis which has been recurrent since September 2020. she is feeling about the same today. She is complaining of abdominal soreness and bloating. She is still having watery stools and estimates about 10 episodes of liquid stools today. she is now complaining of a painful hemorrhoid from frequent bowel movements. She has been tolerating a liquid diet and would like to advance to solids. She denies nausea or vomiting. She has had a headache this morning but it is improving. She denies fever, chills, body aches, shortness of breath, cough, or chest pain. She does feel weak getting around and a little unsteady on her feet but is able to get to the bedside commode. She denies dizziness or lightheadedness. Denies any urinary symptoms Review of Systems Review of Systems: All systems reviewed & are unremarkable except as noted in HPI and below Exam Narrative: Exam Narrative: Ms. Delgado a well-nourished, well-appearing 70-year-old female who is lying semi recumbent in bed. she appears comfortable and is in NARD. Neuro: awake, alert and oriented x4, speech clear, no focal neuro deficits noted HEENMT: normocephalic, atraumatic, EOMI, sclerae anicteric, moist oral mucosa Neck: supple, no lymphadenopathy Respiratory: clear to auscultation bilaterally, nonlabored breathing Cardio: regular rate, regular rhythm with S1-S2 Abdomen: nondistended, normoactive bowel sounds, soft, nontender to palpation Extremities: no edema, erythema, or tenderness to palpation Skin: no rashes or lesions, warm and dry Psych: appropriate mood and affect, judgment and insight intact Objective Data Vital Signs Vital Signs: Vital Signs - 24 hr 12/06/20 14:00 12/06/20 22:00 12/07/20 06:00 Temperature 97.4 F L 98.3 F 97.6 F Pulse Rate 76 81 77 Respiratory Rate 18 20 20 Blood Pressure 129/64 151/54 H 145/69 H Pulse Oximetry 100 100 99 Intake/Output Intake/Output: Intake & Output 12/04/20 12/05/20 12/06/20 12/07/20 23:59 23:59 23:59 23:59 Intake Total 3750 8220 1546 Output Total 900 Balance 3750 5676 1540
[2020-12-07 14:05] VITALS: BP 138/73; PULSE 78; RESP 16; TEMP 36.6; O2SAT 100
[2020-12-07] MEDS: SODIUM CHLORIDE 0.9% IV 1,000 ML 65 ML IV CONT (15:18)
[2020-12-07 15:32] LABS: Anion Gap 10 mmol/L (8-16); Blood Urea Nitrogen 2 mg/dL (7-17); Calcium 7.8 mg/dL (8.4-10.2); Carbon Dioxide 17 mmol/L (22-30); Chloride 113 mmol/L (98-107); Estimated CRCL calculation 73 ml/min; Estimated Glomerular Filt Rate > 60; Glucose 114 mg/dL (65-105); Potassium 3.5 mmol/L (3.4-5.0); Sodium 140 mmol/L (137-145)
--- NOTE | 2020-12-07 20:50 | WPDGIPROGNO ---
Progress Note: A&P Additional Plan GI [facility] for Dr. Kaiser 07 Dec 2020 HB Rao @ bedside. Denies AP, N, V. + bloating. Diarrhea unchanged. Wild po VSS soft/NT 12-07-2020: Hct 29, WBC 7, MCV 95. LFT normal 12-06-2020 Hct 30. B12 1,000. Folate > 20. Ferritin 105, fe 10, TIBC 277, %sat <4. A/P A. Altered bowel habits-diarrhea with history of C diff - Stable overall - C diff 12-05-2020 indeterminant - Treat as positive - Day 1 Dificid - po Vanco discontinued - Continue Florastar - Consider 24 hours of Imodium B. Iron deficiency anemia: - No active bleed - Care with aspirin, NSAIDS and anticoagulants - Please consider IV iron - Further eval per Primary GI service Further recommendations per [facility] GI Thanks, ETELVINA [phone] Subjective Date/time seen: 12/07/20 20:50 Objective Data Vital Signs Vital Signs: Vital Signs - 24 hr 12/06/20 22:00 12/07/20 06:00 12/07/20 14:05 Temperature 36.8 C 36.4 C 36.6 C Pulse Rate 81 77 78 Respiratory Rate 20 20 16 Blood Pressure 151/54 H 145/69 H 138/73 Pulse Oximetry 100 99 100 Intake/Output Intake/Output: Intake & Output 12/04/20 12/05/20 12/06/20 12/07/20 23:59 23:59 23:59 23:59 Intake Total 3750 8220 3596 Output Total 900 Balance 3750 7320 3596 Meds/Results Medications: Active Medications Generic Name Dose Route Start Last Admin Trade Name Freq PRN Reason Stop Dose Admin Bupropion HCl 300 mg 12/06/20 09:00 12/07/20 08:18 Bupropion Hcl Xl (24 Hr) 150 Mg Tabcr PO 300 mg DAILY BASILIA Administration Fidaxomicin 200 mg 12/06/20 09:00 12/07/20 20:20 Fidaxomicin 200 Mg Tablet PO 200 mg Q12HR BASILIA Administration Sodium Chloride 1,000 mls @ 65 mls/hr 12/05/20 14:35 12/07/20 15:18 Normal Saline Iv IV CONT 65 mls/hr .[id number] BASILIA Administration Ondansetron HCl 4 mg 12/05/20 14:31 Ondansetron Inj 4 Mg/2 Ml Vial IV PUSH Q4H PRN Nausea Oxybutynin Chloride 2.5 mg 12/06/20 09:00 12/07/20 17:44 Oxybutynin Chloride 2.5 Mg Tab PO 2.5 mg BID BASILIA Administration Phenyleph/Shark Oil/Herlong Butter 1 supp 12/07/20 10:26 12/07/20 11:37 Phenylephrine Hcl/Herlong Butter Supp.Rect (*Bkc) RECTAL 1 supp Q12HR PRN Administration Hemorrhoids Potassium Chloride 20 meq 12/06/20 17:00 12/07/20 17:44 Potassium Chloride 20 Meq Packet (For Liquid) PO 20 meq BID BASILIA Administration Saccharomyces Boulardii 250 mg 12/06/20 17:00 12/07/20 17:45 Saccharomyces Boulardii 250 Mg Capsule PO 250 mg BID BASILIA Administration Sertraline HCl 150 mg 12/06/20 17:50 12/07/20 08:22 Sertraline Hcl 50 Mg Tablet PO 150 mg DAILY BASILIA Administration Labs Labs: Laboratory Results - last 24 hr 12/07/20 12/07/20 12/07/20 06:02 06:06 06:06 WBC 7.4 RBC 3.10 L Hgb 9.1 L Hct 29.3 L MCV 94.5 MCH 29.4 MCHC 31.1 L RDW 15.1 H Plt Count 213 MPV 10.2 Sodium Potassium Chloride Carbon Dioxide Anion Gap BUN Creatinine Estim Creat Clear Calc Estimated GFR Glucose Calcium Magnesium 1.8 Total Bilirubin 0.2 Direct Bilirubin 0.0 AST 23 ALT 16 Alkaline Phosphatase 58 Total Protein 6.0 L Albumin 3.0 L 12/07/20 14:37 WBC RBC Hgb Hct MCV MCH MCHC RDW Plt Count MPV Sodium 140 Potassium 3.5 Chloride 113 H Carbon Dioxide 17 L Anion Gap 10 BUN 2 L D Creatinine 0.50 L Estim Creat Clear Calc 73 Estimated GFR > 60 Glucose 114 H Calcium 7.8 L Magnesium Total Bilirubin Direct Bilirubin AST ALT Alkaline Phosphatase Total Protein Albumin
[2020-12-07 22:00] VITALS: BP 163/81; PULSE 89; RESP 20; TEMP 36.6; O2SAT 99
[2020-12-08 06:00] VITALS: BP 153/85; PULSE 74; RESP 20; TEMP 36.5; O2SAT 99
[2020-12-08 06:53] LABS: Hematocrit 31.8 % (37.0-47.0); Hemoglobin 9.9 g/dL (12.0-15.0); Mean Corpuscular HGB Conc 31.1 g/dl (32-36); Mean Corpuscular Hemoglobin 29.4 pg (26-34); Mean Corpuscular Volume 94.4 fl (80-100); Mean Platelet Volume 10.1 fl (7.4-10.4); Platelet Count Result 237 k/mm3 (150-375); Red Blood Count 3.37 M/mm3 (4.2-5.4); White Blood Count 5.2 K/mm3 (4.5-10.0)
[2020-12-08] MEDS: SODIUM CHLORIDE 0.9% IV 1,000 ML 65 ML IV CONT (06:56)
[2020-12-08 07:04] LABS: Anion Gap 8 mmol/L (8-16); Blood Urea Nitrogen 3 mg/dL (7-17); Carbon Dioxide 21 mmol/L (22-30); Chloride 113 mmol/L (98-107); Estimated CRCL calculation 62 ml/min; Estimated Glomerular Filt Rate > 60; Glucose 86 mg/dL (65-105); Potassium 3.5 mmol/L (3.4-5.0); Sodium 142 mmol/L (137-145)
[2020-12-08] MEDS: SACCHAROMYCES BOULARDII 250 MG CAPSULE PO ×2 (08:33→16:36)
[2020-12-08] MEDS: buPROPion HCL XL (24 HR) 150 MG TABCR 300 MG PO (08:33)
[2020-12-08] MEDS: SERTRALINE HCL 50 MG TABLET 150 MG PO (08:33)
[2020-12-08] MEDS: FIDAXOMICIN 200 MG TABLET PO ×2 (08:34→21:29)
[2020-12-08] MEDS: POTASSIUM CHLORIDE 20 MEQ PACKET (FOR LIQUID) PO ×2 (08:34→16:36)
[2020-12-08] MEDS: PHENYLEPHRINE HCL/COCOA BUTTER SUPP.RECT (*BKC) 1 SUPP RECTAL (08:34)
[2020-12-08] MEDS: ACETAMINOPHEN/ASPIRIN/CAFFEINE 250-250-65 MG TABLET 1 TABLET PO ×3 (11:59→21:29)
--- NOTE | 2020-12-08 13:01 | PM.IMPN ---
Progress Note: A&P Assessment and Plan (1) Colitis: Code(s): K52.9 - Noninfective gastroenteritis and colitis, unspecified Status: Acute Assessment and Plan: Evident on CT. Concerning for infectious etiology. She completed a course of p.o. vancomycin for C diff colitis 6 days prior to presentation without improvement. Afebrile; leukocytosis resolved Continue PO Dificid (started 12/06/20) Appreciate gastroenterology consultation Initial C diff testing was indeterminate and has been forwarded for PCR testing Continue probiotic and banatrol dietary supplement (2) Acute hypokalemia: Code(s): E87.6 - Hypokalemia Status: Acute Assessment and Plan: secondary to GI losses. Improved with potassium 3.5 today continue p.o. KCl 20 mEq bid monitor BMP and adjust supplementation as needed (3) DIANE (acute kidney injury): Code(s): N17.9 - Acute kidney failure, unspecified Status: Acute Assessment and Plan: Resolved. Creatinine 1.5 at presentation and normalized with IV fluid rehydration. This was prerenal in etiology secondary to dehydration from GI losses Decrease IV fluid rehydration to 50 ml/hr given ongoing diarrhea. She is tolerating p.o. intake and can consider discontinuing fluids as diarrhea continues to improve monitor renal function (4) Hematuria, microscopic: Code(s): R31.29 - Other microscopic hematuria Status: Acute Assessment and Plan: Urine with 2+ blood and 21-50 WBC. She is asymptomatic. UA is actually improved from last in September. Urine culture suggestive of contamination. No clinical suspicion for acute UTI May be due to dehydration/acute illness. Plan for repeat UA upon overall improvement/resolution of infection Will need to consider urology referral if persistent on repeat UA (5) Anemia: Code(s): D64.9 - Anemia, unspecified Status: Acute Assessment and Plan: Labs consistent with iron deficiency. H&H remaining stable with no active blood loss. monitor H&H begin p.o. iron supplementation Subjective Date/time seen: 12/08/20 13:01 Interval history: Date of service: 12/08/20 Karolina Rocha is a 70-year-old female with a history of hyperlipidemia question, and chronic back pain who is seen in follow-up for colitis. She has been treated for C diff colitis which has been recurrent since September 2020. she is feeling better today. She is having less frequent stools and has only had 1 episode of diarrhea today. Her stool is still completely liquid. She has a headache today in the frontal and occipital region. Denies visual changes. Seems to be improving a bit with analgesics. She is tolerating her diet without difficulty. No nausea or vomiting, fever or chills. She has been ambulating independently and has no issues. No dizziness or lightheadedness. No shortness breath, cough, or chest pain. no dysuria, hematuria. Review of Systems Review of Systems: All systems reviewed & are unremarkable except as noted in HPI and below Exam Narrative: Exam Narrative: Ms. Rocha is a well-nourished, well-appearing 70-year-old female who is lying semi recumbent in bed. she appears comfortable and is in NARD. Neuro: awake, alert and oriented x4, speech clear, no focal neuro deficits noted HEENMT: normocephalic, atraumatic, EOMI, sclerae anicteric, moist oral mucosa Neck: supple, no lymphadenopathy Respiratory: clear to auscultation bilaterally, nonlabored breathing Cardio: regular rate, regular rhythm with S1-S2 Abdomen: nondistended, normoactive bowel sounds, soft, nontender to palpation Extremities: no edema, erythema, or tenderness to palpation Skin: no rashes or lesions, warm and dry Psych: appropriate mood and affect, judgment and insight intact Objective Data Vital Signs Vital Signs: Vital Signs - 24 hr 12/07/20 14:05 12/07/20 22:00 12/08/20 06:00 Temperature 97.8 F 97
[2020-12-08 14:00] VITALS: BP 162/95; PULSE 65; RESP 18; TEMP 36.8; O2SAT 97
[2020-12-08 14:52] VITALS: BP 175/96
--- NOTE | 2020-12-08 16:25 | WPDGIPROGNO ---
Progress Note: A&P Assessment and Plan (1) Colitis: Code(s): K52.9 - Noninfective gastroenteritis and colitis, unspecified Status: Acute Assessment and Plan: treated for Cdiff (recently completed oral vanco), now on dificid and improving tolerating diet but still poor appetite (2) Diarrhea: Qualifiers: Diarrhea type: presumed infectious Qualified Code(s): R19.7 - Diarrhea, unspecified Code(s): R19.7 - Diarrhea, unspecified Status: Acute Assessment and Plan: apparently is better (3) Acute hypokalemia: Code(s): E87.6 - Hypokalemia Status: Acute Assessment and Plan: resolved (4) Anemia: Code(s): D64.9 - Anemia, unspecified Status: Acute Assessment and Plan: no signs of gib she had a recent colonoscopy as outpatient Subjective Date/time seen: 12/08/20 16:25 Interval history: diarrhea is better today, still with headache. Overall improving Review of Systems Review of Systems: All systems reviewed & are unremarkable except as noted in HPI and below Exam Const: General: comfortable and no acute distress HENMT: General nose exam: Normal nares present Eyes: Pupils: Equal, round and reactive pupils present Neck: Neck: supple and no JVD Resp: Auscultation: clear to auscultation bilaterally Cardio: Rate: regular rate GI: Inspection: non-distended GI Palp: Yes Soft to palpation and No Guarding due to palpation present (GI) Auscultation: normal bowel sounds Skin: General skin exam: normal color Neuro: Speech: normal speech Motor exam (neuro): Normal motor muscle tone present throughout Extrem: General: normal to inspection Psych: Mental Status: mental status grossly normal Objective Data Vital Signs Vital Signs: Vital Signs - 24 hr 12/07/20 22:00 12/08/20 06:00 12/08/20 14:00 Temperature 97.8 F 97.7 F 98.2 F Pulse Rate 89 74 65 Respiratory Rate 20 20 18 Blood Pressure 163/81 H 153/85 H 162/95 H Pulse Oximetry 99 99 97 12/08/20 14:52 Temperature Pulse Rate Respiratory Rate Blood Pressure 175/96 H Pulse Oximetry Intake/Output Intake/Output: Intake & Output 12/05/20 12/06/20 12/07/20 12/08/20 23:59 23:59 23:59 23:59 Intake Total 3750 8220 3596 1780 Output Total 900 Balance 3750 7320 3596 1780 Meds/Results Medications: Active Medications Generic Name Dose Route Start Last Admin Trade Name Freq PRN Reason Stop Dose Admin Acetaminophen/Aspirin/Caffeine 1 tablet 12/08/20 11:31 12/08/20 11:59 Acetaminophen/Aspirin/Caffeine 250-250-65 Mg Tablet PO 1 tablet BID PRN Administration Headache Bupropion HCl 300 mg 12/06/20 09:00 12/08/20 08:33 Bupropion Hcl Xl (24 Hr) 150 Mg Tabcr PO 300 mg DAILY BASILIA Administration Ferrous Gluconate 324 mg 12/08/20 17:00 Ferrous Gluconate 324 Mg Tablet PO BIDWM BASILIA Fidaxomicin 200 mg 12/06/20 09:00 12/08/20 08:34 Fidaxomicin 200 Mg Tablet PO 200 mg Q12HR BASILIA Administration Sodium Chloride 1,000 mls @ 50 mls/hr 12/05/20 14:35 12/08/20 13:30 Normal Saline Iv IV CONT 50 mls/hr .Q20H BASILIA Infusion Ondansetron HCl 4 mg 12/05/20 14:31 Ondansetron Inj 4 Mg/2 Ml Vial IV PUSH Q4H PRN Nausea Oxybutynin Chloride 2.5 mg 12/06/20 09:00 12/08/20 08:34 Oxybutynin Chloride 2.5 Mg Tab PO 2.5 mg BID BASILIA Administration Phenyleph/Shark Oil/[place] Butter 1 supp 12/07/20 10:26 12/08/20 08:34 Phenylephrine Hcl/[place] Butter Supp.Rect (*Bkc) RECTAL 1 supp Q12HR PRN Administration Hemorrhoids Potassium Chloride 20 meq 12/06/20 17:00 12/08/20 08:34 Potassium Chloride 20 Meq Packet (For Liquid) PO 20 meq BID BASILIA Administration Saccharomyces Boulardii 250 mg 12/06/20 17:00 12/08/20 08:33 Saccharomyces Boulardii 250 Mg Capsule PO 250 mg BID BASILIA Administration Sertraline HCl 150 mg 12/06/20 17:50 12/08/20 08:33 Sertraline Hcl 50 Mg Tablet PO 15
[2020-12-08] MEDS: FERROUS GLUCONATE 324 MG TABLET PO (16:37)
[2020-12-08 21:41] VITALS: BP 170/79; PULSE 66; RESP 16; TEMP 36.6; O2SAT 97
[2020-12-09] MEDS: SODIUM CHLORIDE 0.9% IV 1,000 ML 50 ML IV CONT (00:41)
[2020-12-09 06:00] VITALS: BP 149/83; PULSE 67; RESP 16; TEMP 36.4; O2SAT 100
[2020-12-09 07:02] LABS: Hemoglobin 10.8 g/dL (12.0-15.0); Mean Corpuscular HGB Conc 31.8 g/dl (32-36); Mean Corpuscular Hemoglobin 29.3 pg (26-34); Mean Corpuscular Volume 92.1 fl (80-100); Platelet Count Result 287 k/mm3 (150-375); Red Blood Count 3.69 M/mm3 (4.2-5.4); Red Cell Distribution Width 14.6 % (11.5-14.5); White Blood Count 5.5 K/mm3 (4.5-10.0)
[2020-12-09 07:09] LABS: Anion Gap 9 mmol/L (8-16); Blood Urea Nitrogen 6 mg/dL (7-17); Calcium 9.2 mg/dL (8.4-10.2); Carbon Dioxide 24 mmol/L (22-30); Chloride 107 mmol/L (98-107); Estimated CRCL calculation 54 ml/min; Estimated Glomerular Filt Rate > 60; Glucose 90 mg/dL (65-105); Magnesium 1.7 mg/dL (1.6-2.3); Potassium 3.4 mmol/L (3.4-5.0); Sodium 140 mmol/L (137-145)
[2020-12-09] MEDS: MAGNESIUM SULF 2 GM/WATER 50ML 2 GM/50 ML BAG IVPB (08:53)
[2020-12-09] MEDS: buPROPion HCL XL (24 HR) 150 MG TABCR 300 MG PO (08:56)
[2020-12-09] MEDS: FERROUS GLUCONATE 324 MG TABLET PO (08:57)
[2020-12-09] MEDS: SACCHAROMYCES BOULARDII 250 MG CAPSULE PO (08:57)
[2020-12-09] MEDS: SERTRALINE HCL 50 MG TABLET 150 MG PO (08:57)
[2020-12-09] MEDS: FIDAXOMICIN 200 MG TABLET PO (08:57)
[2020-12-09] MEDS: POTASSIUM CHLORIDE 20 MEQ PACKET (FOR LIQUID) PO (08:57)
[2020-12-09 10:33] LABS: Add Urine Microscopic? YES; Appearance Urine Clear (Clear); Bilirubin Urine Negative (Negative); Blood Urine 2+ (Negative); Color Urine Straw (Yellow); Glucose Urine UA Negative (Negative); Ketones Urine Negative (Negative); Leukocyte Esterase Ur Negative LEU/UL (Negative); Mucus Urine Rare /lpf; Nitrate Urine Negative (Negative); Protein Urine Negative (Negative); Specific Grav Ur 1.005 (1.001-1.035); Squamous Epithelial Cell Urine Occasional /hpf (Few); Urobilinogen Urine Negative mg/dL (<2.0); WBC Urine 0-3 /hpf
[2020-12-09 13:45] VITALS: BP 133/76; PULSE 67; RESP 16; TEMP 36.5; O2SAT 100
--- NOTE | 2020-12-09 14:20 | PM.DS ---
DS: Admitting Diagnosis Admitting Diagnosis Admitting Diagnosis: dehydration, hypokalemia DS: Discharge Diagnosis Discharge Diagnosis (1) Colitis: Code(s): K52.9 - Noninfective gastroenteritis and colitis, unspecified Status: Acute Assessment and Plan: Date of Admission 12/05/20 Date of Discharge 12/09/20 Ms. Rocha is a very pleasant 70yo F with history of anxiety, dyslipidemia, overactive bladder, and recent C diff colitis infection who presented to the ED for evaluation of nausea, vomiting, and diarrhea. She was originally found to have C diff colitis 10/15/20 and has been treated with a course of oral vancomycin. She was then seen in follow up at outpatient GI appointment and felt to be weak, dizzy, hypotensive thus was sent to the ER for evaluation. She was admitted to the hospitalist service for management of DIANE, hypokalemia secondary to presumed recurrent vs partially-treated C diff colitis. She completed the course of PO vancomycin 6 days prior to arrival. GI was consulted and she was evaluated by BREANNA Villegas and Dr Rae. She was treated with oral Dificid. Her initial C diff assay was indeterminant and forwarded for PCR which was ultimately negative. Discussed case with Dr Rae who would like to continue the fidaxomicin for 6 days after discharge for her partially-treated C diff infection given her recurrence. She was also treated with probiotic as well as Banatrol dietary supplement. She had electrolyte imbalances noted below which were repleted prior to discharge. She showed marked improvement and had no bowel movements thus far on day of discharge. She was feeling well and was hemodynamically stable for discharge on 12/09/20 with instructions to follow up with Dr Rae's office in 3 weeks as well as PCP. (2) Acute hypokalemia: Code(s): E87.6 - Hypokalemia Status: Acute Assessment and Plan: Secondary to GI losses. Improved with potassium 3.4 today. Discharge with oral potassium supplement and repeat labs. (3) DIANE (acute kidney injury): Code(s): N17.9 - Acute kidney failure, unspecified Status: Acute Assessment and Plan: Resolved. Creatinine 1.5 at presentation and normalized with IV fluid rehydration. This was prerenal in etiology secondary to dehydration from GI losses. Cr 0.7 day of discharge. Tolerating meals well and IV fluids were stopped. (4) Hematuria, microscopic: Code(s): R31.29 - Other microscopic hematuria Status: Acute Assessment and Plan: Urine with 2+ blood and 21-50 WBC. She is asymptomatic. UA is actually improved from last in September. Urine culture suggestive of contamination. No clinical suspicion for acute UTI. May be due to dehydration/acute illness. UA showed 2+ blood but actually with 0-2 RBC (discussed with geoscience laboratory technician multiple times due to no RBC reported on my MAR, but she was able to see result of 0-2 RBC/hpf on repeat UA day of discharge). retail financial analyst noted sometimes abx can affect qualitative blood on UA but to go by the 0-2 RBC, thus no hematuria and no need for further investigation unless patient develops urinary symptoms. (5) Anemia: Code(s): D64.9 - Anemia, unspecified Status: Acute Assessment and Plan: Labs consistent with iron deficiency. H&H remaining stable with no active blood loss. Started on oral iron supplementation. DS: Summary Hospital Course Hospital Course: See above Time Spent with Patient Time attestation: Total time spent providing and/or coordinating discharge services: 35 minutes Exam Narrative: Exam Narrative: Ms. Rocha is a well-nourished, well-appearing 70-year-old female who is lying semi recumbent in bed. she appears comfortable and is in NARD. Neuro: awake, a
--- NOTE | 2020-12-09 15:27 | WPDGIPROGNO ---
Progress Note: A&P Assessment and Plan (1) Colitis: Code(s): K52.9 - Noninfective gastroenteritis and colitis, unspecified Status: Acute Assessment and Plan: recurrent diarrhea after recently completed oral vanco final C diff toxin negative but still would complete total of 10 days with dificid since she has clinically improved she can go home with 6 more days of dificid follow-up office 3-4 weeks (2) Diarrhea: Qualifiers: Diarrhea type: presumed infectious Qualified Code(s): R19.7 - Diarrhea, unspecified Code(s): R19.7 - Diarrhea, unspecified Status: Acute Assessment and Plan: resolved (3) Acute hypokalemia: Code(s): E87.6 - Hypokalemia Status: Acute Assessment and Plan: resolved (4) Anemia: Code(s): D64.9 - Anemia, unspecified Status: Acute Assessment and Plan: no signs of gib she had a recent colonoscopy as outpatient Subjective Date/time seen: 12/09/20 15:27 Interval history: she is eating more, no diarrhea and overall better Review of Systems Review of Systems: All systems reviewed & are unremarkable except as noted in HPI and below Exam Const: General: comfortable and no acute distress HENMT: General nose exam: Normal nares present Eyes: General: appearance normal, both eyes and all related structures Neck: Neck: no JVD Resp: Auscultation: clear to auscultation bilaterally Cardio: Rate: regular rate Rhythm: regular rhythm GI: Inspection: non-distended GI Palp: Yes Soft to palpation, No Tenderness to palpation present (GI) and No Guarding due to palpation present (GI) Auscultation: normal bowel sounds Skin: General skin exam: normal color Neuro: General: gait normal Speech: normal speech Extrem: General: normal to inspection Psych: Mental Status: mental status grossly normal Objective Data Vital Signs Vital Signs: Vital Signs - 24 hr 12/08/20 21:41 12/09/20 06:00 12/09/20 13:45 Temperature 97.8 F 97.6 F 97.7 F Pulse Rate 66 67 67 Respiratory Rate 16 16 16 Blood Pressure 170/79 H 149/83 H 133/76 Pulse Oximetry 97 100 100 Intake/Output Intake/Output: Intake & Output 12/06/20 12/07/20 12/08/20 12/09/20 23:59 23:59 23:59 23:59 Intake Total 8220 3596 3520 1440 Output Total 900 750 Balance 7320 3596 2770 1440 Meds/Results Medications: Active Medications Generic Name Dose Route Start Last Admin Trade Name Freq PRN Reason Stop Dose Admin Acetaminophen/Aspirin/Caffeine 1 tablet 12/08/20 11:31 12/08/20 21:29 Acetaminophen/Aspirin/Caffeine 250-250-65 Mg Tablet PO 1 tablet BID PRN Administration Headache Bupropion HCl 300 mg 12/06/20 09:00 12/09/20 08:56 Bupropion Hcl Xl (24 Hr) 150 Mg Tabcr PO 300 mg DAILY BASILIA Administration Ferrous Gluconate 324 mg 12/08/20 17:00 12/09/20 08:57 Ferrous Gluconate 324 Mg Tablet PO 324 mg BIDWM BASILIA Administration Fidaxomicin 200 mg 12/06/20 09:00 12/09/20 08:57 Fidaxomicin 200 Mg Tablet PO 200 mg Q12HR BASILIA Administration Hydralazine HCl 10 mg 12/08/20 17:24 Hydralazine Hcl 20 Mg/Ml Vial IV PUSH Q8H PRN Systolic BP >170 Magnesium Oxide 400 mg 12/10/20 09:00 Magnesium Oxide 400 Mg Tablet PO DAILY BASILIA Ondansetron HCl 4 mg 12/05/20 14:31 Ondansetron Inj 4 Mg/2 Ml Vial IV PUSH Q4H PRN Nausea Oxybutynin Chloride 2.5 mg 12/06/20 09:00 12/09/20 08:57 Oxybutynin Chloride 2.5 Mg Tab PO 2.5 mg BID BASILIA Administration Potassium Chloride 20 meq 12/06/20 17:00 12/09/20 08:57 Potassium Chloride 20 Meq Packet (For Liquid) PO 20 meq BID BASILIA Administration Saccharomyces Boulardii 250 mg 12/06/20 17:00 12/09/20 08:57 Saccharomyces Boulardii 250 Mg Capsule PO 250 mg BID BASILIA Administration Sertraline HCl 150 mg 12/06/20 17:50 12/09/20 08:57 Sertraline Hcl 50 Mg Tablet PO 150 mg DAILY BASILIA Administration Labs Labs:
== END 2020-12-09 16:50 | disposition home or self-care (01) | DRG 392 ==
LOC: ANHED 14:36 → ANH3MEDSUR 15:25
PROVIDERS: Nurse Practitioner Family; Physician Assistant; Admitting Provider Internal Medicine; Emergency Provider Emergency Medicine; PCP Internal Medicine; Visit Provider Physician Assistant
DX: K52.9 Noninfective gastroenteritis and colitis, unspecified (principal); N17.9 Acute kidney failure, unspecified; E87.6 Hypokalemia; D50.9 Iron deficiency anemia, unspecified; R31.29 Other microscopic hematuria; E78.2 Mixed hyperlipidemia; I10 Essential (primary) hypertension; F32.9 Major depressive disorder, single episode, unspecified; N32.81 Overactive bladder; M54.9 Dorsalgia, unspecified; Z79.899 Other long term (current) drug therapy; Z86.19 Personal history of other infectious and parasitic diseases
CPT/HCPCS: 36415; 80048; 80053; 80076; 81001; 82607; 82728; 82746; 83540; 83550; 83605; 83690; 83735; 85025; 85027; 87086; 87088; 87324; 87493; 93005; 96361; 99285; A9270; G0378; J0131; J3475; J7030

== ENCOUNTER → 2022-10-07 13:09 | Outpatient (CLI) | payer MEDICARE, SELFPAY ==
--- NOTE | ~2022-10-07 | DEXA_ITS ---
Bone Density Report Name: DIOMEDES WILSON Age: 72 Sex: Female Ethnicity: White Date of : 1950 Indication: postmenopausal; screening for osteoporosis; height loss; Referring Provider: CAMPBELL, YRIS Study: Bone densitometry was performed. Exam Date: October 07, 2022 Accession number: [id number] Bone Density: Region BMD T-score Z-score Classification AP Spine (L1-L4) 1.456 3.7 6.1 Normal Femoral Neck (Left) 0.948 0.9 2.9 Normal Total Hip (Left) 1.124 1.5 3.2 Normal Femoral Neck (Right) 0.874 0.2 2.3 Normal Total Hip (Right) 1.157 1.8 3.5 Normal Total Hip Mean 1.141 1.7 3.4 Normal World Health Organization criteria for BMD impression classify patients as: Normal (T-score at or above -1.0), Osteopenia (T-score between -1.0 and -2.5), or Osteoporosis (T-score at or below -2.5). 10-year Fracture Risk: FRAX not reported because: All T-scores for Spine Total, Hip Total, Femoral Neck at or above -1.0 Previous Exams: Region Exam Age BMD T-score BMD Change BMD Change Date g/cm2 vs Baseline vs Previous AP Spine(L1-L4) 10/07/2022 72 1.456 3.7 0.216* 0.172* 11/18/2014 64 1.285 2.2 0.044* 0.027* 05/26/2011 60 1.258 1.9 0.018 0.018 10/31/2006 56 1.240 1.8 Total Hip(Left) 10/07/2022 72 1.124 1.5 0.051* 0.013 11/18/2014 64 1.111 1.4 0.039* -0.026 05/26/2011 60 1.136 1.6 0.064* 0.064* 10/31/2006 56 1.072 1.1 Total Hip(Right) 10/07/2022 72 1.157 1.8 0.079* 0.053* 11/18/2014 64 1.103 1.3 0.025 -0.025 05/26/2011 60 1.129 1.5 0.051* 0.051* 10/31/2006 56 1.078 1.1 *Denotes significance at 95% confidence level, LSC for AP Spine = 0.022 g/cm2, LSC for Total Hip = 0.027 g/cm2 Clinical Information Provided by Patient: Has used the following medications: HRT (i.e. estrogen/hormone therapy), Vitamin D Patient maximum height was 66 Menopause Age: 48 Drinks caffeinated beverages Onset of menses at age 9 Number of children 2 Impression: The patient has normal bone mass. No significant bone loss was observed. Discussion: LOW RISK OF FRACTURE; BONE DENSITY IS WELL ABOVE THE MINIMUM DESIRABLE LEVEL AND ABOVE AVERAGE FOR AGE AND SEX AT ALL SKELETAL SITES TESTED. This person's bone density is above expected limits for age
--- NOTE | ~2022-10-07 | MM_ITS ---
EXAMINATION: MM screening reagan BI w rosalba HISTORY: Screening mammogram, family history of breast cancer in her sister. TECHNIQUE: Craniocaudal and mediolateral oblique 3-D tomosynthesis images were obtained and synthetic 2-D images were generated. CAD analysis was submitted and interpreted. COMPARISON: 01/24/2020, 12/18/2018, 12/08/2017 BREAST PARENCHYMAL COMPOSITION: There are scattered areas of fibroglandular density. FINDINGS: No suspicious mass, calcification, or architectural distortion are identified in either laura ast to suggest malignancy. There has been no suspicious interval change. IMPRESSION: 1. No mammographic evidence of malignancy. 2. Recommend routine screening mammography in one year. BI-RADS Category 1: Negative Reviewed, dictated and finalized at location A.
== END ==
PROVIDERS: PCP Family Medicine; Visit Provider Nurse Practitioner
DX: Z12.31 Encounter for screening mammogram for malignant neoplasm of breast (principal); Z78.0 Asymptomatic menopausal state
CPT/HCPCS: 77063; 77067; 77080

== ENCOUNTER 2024-01-26 10:36 | Outpatient (CLI) | payer MEDICARE, SELFPAY ==
--- NOTE | ~2024-01-26 | XR_ITS ---
Cervical Spine: AP, lateral, open-mouth views Clinical History: Pain Findings: No fracture evident. There is minimal grade 1 retrolisthesis of C4 over C5. There is severe degenerative narrowing at C4-C5 and C5-C6. There is moderate degenerative disc narrowing at C6-C7. T here is mild to moderate facet arthropathy throughout the cervical spine. Pre-vertebral soft tissues are unremarkable. Impression: Moderate degenerative spondylosis overall, as detailed above. Minimal grade 1 retrolisthesis of C4 over C5. Reviewed, dictated and finalized at location M. Impression: Moderate degenerative spondylosis overall, as detailed above. Minimal grade 1 retrolisthesis of C4 over C5.
== END 2024-01-26 10:37 | disposition home or self-care (01) ==
LOC: ANHIMG 10:47
PROVIDERS: PCP Family Medicine; Visit Provider Nurse Practitioner Family
DX: M47.892 Other spondylosis, cervical region (principal); M43.12 Spondylolisthesis, cervical region
CPT/HCPCS: 72040

== ENCOUNTER 2024-03-19 01:31 | Day surgery (SDC) | payer MEDICARE, SELFPAY ==
[2024-03-13 15:10] VITALS: BMI 26.4
--- NOTE | 2024-03-13 15:33 | PC.NURSE ---
Report to the Outpatient Waiting Room, entrance under the green pavilion located off [facility], at time ___9:00AM____ on date ___03/19/24____. Planned Procedure Time: ____11:00AM____.? Time changes happen often and if your time is changed the preop area will call you the afternoon before. - You and your visitor will be asked to self-screen and do not enter if you have any COVID symptoms. Please call surgeon if you need to reschedule. - A mask is optional within the hospital at this time. Patients may have clear liquids (water, carbonated beverages, clear teas, apple juice) until 3 hours prior to surgery with a maximum of 20 ounces. - No food from midnight until time of surgery and no smoking - Infants may have breast milk until 4 hours before surgery, formula 6 hours prior to surgery. - Children will be allowed to drink immediately following surgery.? If applicable, please bring a bottle or sippy cup to assist with drinking. Juice, water, soda, and popsicles are readily available.? For infants on formula, please bring formula the day of surgery.? Pacifiers are allowed. Take only the following medications with a SIP of water on the morning of surgery: ____SERTRALINE DO NOT STOP ANY OF YOUR OTHER PRESCRIPTION MEDICATIONS PRIOR TO SURGERY EXCEPT THE FOLLOWING Medications to discontinue per physician ____HOLD VITAMINS/SUPPLEMENTS 3 DAYS PRE-OP PER ANESTHESIA Date to take last dose 03/15/24 Please no make-up, nail czech, hairspray, perfume, deodorant, or body powder the day of surgery.? No jewelry (including any body piercings) or valuables the day of surgery, leave them at home.? Please take a shower or bath the night before, or the morning of, surgery with an antibacterial soap.? Wear comfortable, loose fitting clothing.? Children are encouraged to wear pajamas. - Jewelry must be removed prior to entering the operating room.? Rings and piercings that are not removed may be cut off. - The hospital will not accept responsibility for valuables.? - Please leave all valuables, including medications, at home the day of surgery. If you are going home after surgery, a licensed cab driver must drive you home.? - NO public transportation without another adult if you receive anesthesia. - We recommend that an adult stay with you for 24 hours following discharge. - We also recommend that you do not drive, make important decision, drink alcoholic beverages, or take any drugs that were not prescribed by your health care provider for at least 24 hours after your discharge time. For Pediatric surgeries, we recommend two adults accompany the child home. Follow any additional instructions given to you from your surgeon. Telephone instructions given to PATIENT and asked if any additional questions and then verbalized understanding. Patient advised to call surgeon office or pre surgery nurse liaison [phone] if any additional questions.
--- NOTE | 2024-03-19 08:06 | WPDHPUPDATE1 ---
History and Physical Update Update Date/Time: 03/19/24 08:06 History and Physical has been reviewed, including an updated exam of the patient. There are NO changes in the patient's condition. Risks, benefits, and alternatives have been discussed and questions answered. Patient agrees to proceed with procedure.
--- NOTE | 2024-03-19 08:06 | PM.HPGS ---
History of Present Illness History of Present Illness Consent: Risks, benefits, and alternatives have been discussed and questions answered. Patient agrees to proceed with procedure. Chief complaint: post menopausal bleeding Narrative: Karolina Rocha is a 73 year old female with postmenopausal bleeding. It was recommended to undergo D&C hysteroscopy to further evaluate. Due to severe atrophy, patient was given Cytotec for 7 days prior to procedure. Risks of infection, bleeding, perforation, and possible pathology were reviewed. Patient voiced understanding and agrees to proceed. Review of Systems Review of Systems: not repeated day of surgery; patient states no changes in status PMFSH Past Medical History Medical History (Updated 03/19/24 @ 08:10 by Yadira Winkler MD) delivery delivered X1 COVID-19 vaccine series completed Depression IFG (impaired fasting glucose) Mixed hyperlipidemia Osteoarthritis of both hips Surgical History Surgical History (Updated 03/19/24 @ 08:09 by Yadira Winkler MD) H/O section History of appendectomy History of bilateral tubal ligation History of bunionectomy of right great toe History of cystoscopy History of hysteroscopy 2016 polyps History of knee replacement bilateral 2021 History of midurethral sling procedure 2010 transobturator taping Family History Family History Father , Lung cancer-smoker Family history of malignant neoplasm, Onset Age: 57 Mother Family history of thoracic aortic aneurysm, Onset Age: 57 Acute myocardial infarction Social History Social History Smoking status: Never smoker Second hand tobacco smoke exposure: No Alcohol intake: current Drinks per week: 8 Alcohol use details: Social Substance use: never Substance use type: does not use Lack of Transportation: No Lack of Food: Never True Current Housing: I Have Housing Concerned About Future Housing: No Difficulty Paying Gas/Electric Bills: No Difficulty Paying for Meds: No Currently Unemployed: No Education: High School Diploma/GED Difficulty w/ Childcare or Family Care: No Living arrangements: with family Additional living arrangements comments: [facility] Occupation/Education: retired Gender identity (if verbalized by the patient): Female Sexual Orientation (if Verbalized by the Patient): Straight or Heterosexual Spiritual care concerns: No Meds Home Medications and Allergies Home Medications Medication Instructions Recorded Confirmed Type biotin 10,000 mcg-keratin 100 mg 1 tablet PO DAILY 07/11/20 03/13/24 History tablet (Biotin Plus Keratin) cholecalciferol (vitamin D3) 10 10 mcg PO DAILY 04/05/23 03/13/24 History mcg (400 unit) capsule rosuvastatin 5 mg tablet See Rx Instructions .Route 12/29/23 03/13/24 Rx .COMPLEX #90 tabs meloxicam 7.5 mg tablet 7.5 mg PO DAILY #90 tabs 01/25/24 03/13/24 Rx ruoiazj-hflddwzikovqz-txnjadie 250 1 tablet PO Q4-6H PRN Pain 03/13/24 03/13/24 History mg-250 mg-65 mg tablet (Excedrin Migraine) oxybutynin chloride 5 mg tablet 2.5 mg PO BID 03/13/24 03/13/24 History sertraline 100 mg tablet 200 mg PO QAM 03/13/24 03/13/24 History methylprednisolone 4 mg tablets in See Rx Instructions PO PER PKG DIR 03/15/24 03/15/24 Rx a dose pack (Medrol (William)) #21 ea Allergies Allergy/AdvReac Type Severity Reaction Status Date / Time No Known Allergies Allergy Verified 03/15/24 11:08 Exam Const: General: healthy appearing and alert Orientation/consciousness: patient oriented x3 Resp: Effort & Inspection: normal respiratory effort : External Female Exam: other ( severe atrophy) Speculum Exam - Vagina: normal vaginal discharge and vagina atrophic Speculum Exam - Cervix: Other cervical findings present ( atrophic severe) Bi
--- NOTE | 2024-03-19 10:14 | WPDANESEPPF ---
Anes - Initial Pre Proc Eval Procedure: Operation Date: 03/19/24 11:00 Proposed Procedures p Hysteroscopy Dilation and Curettage - Yadira Winkler MD Date/Time: 03/19/24 10:14 Surgeon: Yadira Winkler MD Pre Op Diagnosis: post menopausal bleeding Patient Data Age: 73 Gender: F Height: 1.63 m Weight: 70 kg Allergies Allergy/AdvReac Type Severity Reaction Status Date / Time No Known Allergies Allergy Verified 03/15/24 11:08 Home Medications Medication Instructions Recorded Confirmed Type biotin 10,000 mcg-keratin 100 mg 1 tablet PO DAILY 07/11/20 03/13/24 History tablet (Biotin Plus Keratin) cholecalciferol (vitamin D3) 10 10 mcg PO DAILY 04/05/23 03/13/24 History mcg (400 unit) capsule rosuvastatin 5 mg tablet See Rx Instructions .Route 12/29/23 03/13/24 Rx .COMPLEX #90 tabs meloxicam 7.5 mg tablet 7.5 mg PO DAILY #90 tabs 01/25/24 03/13/24 Rx hvcruri-mjbituroeckdf-yynsofxk 250 1 tablet PO Q4-6H PRN Pain 03/13/24 03/13/24 History mg-250 mg-65 mg tablet (Excedrin Migraine) oxybutynin chloride 5 mg tablet 2.5 mg PO BID 03/13/24 03/13/24 History sertraline 100 mg tablet 200 mg PO QAM 03/13/24 03/13/24 History methylprednisolone 4 mg tablets in See Rx Instructions PO PER PKG DIR 03/15/24 03/15/24 Rx a dose pack (Medrol (William)) #21 ea Patient hx anesthesia problems: none Family hx anesthesia problems: none Results Review: All pre-operative results and documents have been reviewed as part of the pre-operative evaluation. [facility] Past Medical History Medical History delivery delivered X1 COVID-19 vaccine series completed Depression IFG (impaired fasting glucose) Mixed hyperlipidemia Osteoarthritis of both hips Surgical History Surgical History H/O section History of appendectomy History of bilateral tubal ligation History of bunionectomy of right great toe History of cystoscopy History of hysteroscopy 2016 polyps History of knee replacement bilateral 2021 History of midurethral sling procedure 2010 transobturator taping Family History Family History Father , Lung cancer-smoker Family history of malignant neoplasm, Onset Age: 57 Mother Family history of thoracic aortic aneurysm, Onset Age: 57 Acute myocardial infarction Social History Social History Smoking status: Never smoker Second hand tobacco smoke exposure: No Alcohol intake: current Drinks per week: 8 Alcohol use details: Social Substance use: never Substance use type: does not use Lack of Transportation: No Lack of Food: Never True Current Housing: I Have Housing Concerned About Future Housing: No Difficulty Paying Gas/Electric Bills: No Difficulty Paying for Meds: No Currently Unemployed: No Education: High School Diploma/GED Difficulty w/ Childcare or Family Care: No Living arrangements: with family Additional living arrangements comments: [facility] Occupation/Education: retired Gender identity (if verbalized by the patient): Female Sexual Orientation (if Verbalized by the Patient): Straight or Heterosexual Spiritual care concerns: No Anes - Eval Final PreProcedure Day of Procedure 03/19/24 10:14 Patient weight: overweight Heart: regular rate and rhythm Lungs: clear to auscultation Airway: Mallampati scale class II Neurological: alert and oriented Last oral intake: >/= 8 hours ASA classification: II Emergent: no Anesthetic plan: proceed Anesthesia type and monitoring: general GIVS and standard monitoring Results Review: All pre-operative results and documents have been reviewed as part of the pre-operative evaluation. Hyperlipidemia. Pt active w walking 7K
[2024-03-19 10:30] VITALS: BP 141/60; PULSE 66; RESP 16; TEMP 36.6; O2SAT 100
[2024-03-19] MEDS: LACTATED RINGERS 1,000 ML 30 ML IV CONT (10:30)
[2024-03-19] MEDS: ACETAMINOPHEN 500 MG TABLET 1000 MG PO (10:30)
[2024-03-19 12:07] VITALS: BP 142/69; PULSE 60; RESP 14; O2SAT 98
--- NOTE | 2024-03-19 12:08 | P.OP_ITS ---
Procedure Note - Detailed Date of Procedure 03/19/24 Pre-op Diagnosis post menopausal bleeding Post-op Diagnosis Same Procedure Performed D&C hysteroscopy with resection of polyp Surgeon Yadira Winkler MD Anesthesia MAC Findings vagina and cervix were very atrophic cervix is flush with vagina uterus sounds to 7cm and was grossly atrophic polyp at the posterior left Description of Procedure The patient was taken to the operating room and placed under anesthesia in the dorsal lithotomy position. She was prepped and draped in the usual sterile fashion. [place] speculum was placed in the vagina and noted to be too wide. Bernardo speculum was opened in placed and the cervix is barely visible. The cervix is flush with vagina and is very difficult to grasp with a tenaculum. After multiple attempts a small anterior portion of the cervix is grasped with a tenaculum. The os Finders were used and the hysteroscope was then used to hydro dissect into the cavity. A small polyp was noted and the small Aveta resection device is used to resect the polyp in its entirety. The hysteroscope was removed and the uterus sounded to 7cm. The sharp OO curette is used to curette the endometrium until a good uterine cry was noted in all areas. All areas are very atrophic and minimal if any material was obtained during this process. All instruments are removed. Patient was awakened from anesthesia and taken to recovery in stable condition. Sponge, needle, and instrument counts are correct per the OR staff. Estimated Blood Loss 5 Drains No Packing No Pathology Yes ( Endometrial shavings and curettings) Complications No immediate complications Condition Stable Disposition PACU
[2024-03-19] MEDS: fentaNYL CITRATE INJ (*CRX) 100 MCG/2 ML VIAL 25 MCG IV PUSH ×2 (12:22→12:26)
[2024-03-19 12:35] VITALS: BP 147/65; PULSE 58; RESP 14; O2SAT 95
[2024-03-19 13:05] VITALS: BP 156/63; PULSE 67; RESP 14
== END 2024-03-19 13:27 | disposition home or self-care (01) ==
PROVIDERS: PCP Family Medicine; Visit Provider Obstetrics & Gynecology Gynecology
PROC: 0U5B8ZZ Destruction of Endometrium, Via Natural or Artificial Opening Endoscopic (ICD-10-PCS; CPT 58563; principal; 2024-03-19 11:00)
DX: N85.8 Other specified noninflammatory disorders of uterus (principal); N84.1 Polyp of cervix uteri; F32.A Depression, unspecified; E78.2 Mixed hyperlipidemia; M16.0 Bilateral primary osteoarthritis of hip; R73.01 Impaired fasting glucose; Z79.82 Long term (current) use of aspirin; Z98.890 Other specified postprocedural states; Z98.51 Tubal ligation status; Z86.0100 Personal history of colon polyps, unspecified; Z80.1 Family history of malignant neoplasm of trachea, bronchus and lung; Z82.49 Family history of ischemic heart disease and other diseases of the circulatory system
CPT/HCPCS: 58558; 88305; A9270; J2003; J2704; J3010; J7030; J7120

== ENCOUNTER 2025-03-27 14:21 | Outpatient (CLI) | payer MEDICARE, SELFPAY ==
--- NOTE | ~2025-03-27 | MM_ITS ---
EXAMINATION: MM screening [facility] BI w rosalba HISTORY: Screening TECHNIQUE: Craniocaudal and mediolateral oblique 3-D tomosynthesis images were obtained and synthetic 2-D images were generated. CAD analysis was submitted and interpreted. COMPARISON: Comparison to multiple prior studies sequentially, with oldest reviewed study dated 11/09/2016. BREAST PARENCHYMAL COMPOSITION: Not dense: There are scattered areas of fibroglandular density. FINDINGS: There is no evidence of suspicious mass, calcification, or architectural distortion to suggest malignancy in either breast. There has been no suspicious interval change. IMPRESSION: 1. No mammographic evidence of malignancy. 2. Recommend routine screening mammography in one year. BI-RADS Category 1: Negative Reviewed, dictated and finalized at location B.
--- OUTSIDE RECORDS SUMMARY | 2025-03-27 16:22 | XMS_ITS | Encounter Summary ---
Author Organization [facility] Address [address] [place] [address] Care Team Providers Care Millroom Supervisor Name Role Phone Jose Luis Baig MD Primary Care Provider [phone] Vitaliy Hdz MD Primary Care Provider Encounter Details Date Type Department Care Team (Latest Contact Info) Description 04/04/2018 Abstract [facility] , Yuriy Mullins MD Social History Tobacco Use Types Packs/Day Years Used Date Smoking Tobacco: Never Assessed Comments Unknown Sex and Gender Information Value Date Recorded Sex Assigned at Not on file Legal Sex Female 4:46 PM CDT Gender Identity Female 05/25/2021 2:31 PM NEWS AGENT Sexual Orientation Straight 05/25/2021 2: 31 PM NEWS AGENT documented as of this encounter Plan of Treatment Not on file documented as of this encounter Visit Diagnoses Not on filedocumented in this encounter Additional Health Concerns Infection Onset Date Last Indicated Resolved Time MRSA Comment:07/18/21 +MRSA Nasal 07/19/2021 07/19/2021 documented as of this encounter Care Teams Millroom Supervisor Relationship Specialty Start Date End Date Jose Luis Baig MD PCP - General INTERNAL MEDICINE 03/08/18 07/20/21 Vitaliy Hdz MD [address] [place] [address] PCP - General INTERNAL MEDICINE 07/21/21 documented as of this encounter
--- OUTSIDE RECORDS SUMMARY | 2025-03-27 16:22 | XMS_ITS | Clinical Summary ---
Author Organization [facility] Address [address] [place] [address] Care Team Providers Care Catalogue Illustrator Name Role Phone No, Physician Primary Care Provider [phone] Allergies No known active allergies Medications aspirin/acetami nophen/caffeine (EXCEDRIN MIGRAINE ORAL) Activ e fesoterodine ER (TOVIAZ) 4 mg tablet extended release 24 hr 4 mg. Active oxybutynin (DITROPAN) 5 mg tablet Take 1 tablet (5 mg total) by mouth 3 (three) times a day Active norethindrone ac-eth estradioL (FEMHRT 06/03) 1-5 mg-mcg tablet Take by mouth daily. Active rosuvastatin (CRESTOR) 5 mg tablet Take 1 tablet (5 mg total) by mouth daily 1 Active meloxicam (MOBIC) 7.5 mg tablet Take 1 tablet (7.5 mg total) by mouth daily 4 Active amoxicillin 500 mg capsule TAKE 1 CAPSULE BY MOUTH 3 TIMES A DAY UNTIL GONE 5 Active Yuvafem 10 mcg tablet INSERT 1 TABLET VAGINALLY TWICE WEEKLY 5 Active sertraline (ZOLOFT) 100 mg tablet Take 2 tablets (200 mg total) by mouth daily 5 Active Active Problems Problem Noted Date Diagnosed Date Asymptomatic spider veins of both lower extremit ies 06/29/2024 History of total knee replacement 10/13/2021 Diarrhea of presumed infectious origin 08/10/202 1 Primary osteoarthritis of left knee 08/16/2018 Status post right foot surgery 06/23/2018 Hammertoe of right foot 05/31/2018 Hallux valgus (acquired), right foot 05/31/2018 Bunion, right 03/06/2018 Hammer toe 03/06/2018 Francisco's thyroiditis 11/22/2016 Sensorineural hearing loss, asymmetrical 016 Tinnitus of both ears 02/26/2016 Encounters Date Type Department Care Team Description 03/12/2025 Treatment [facility] Otolaryngology [address] [place] [address] [address] [place] [phone] Lisbet Josue Sensorineural hearing loss (SNHL) of both ears (Primary Dx) 03/05/2025 Telephone [facility] Otolaryngology [address] [place] [address] [address] [place] [phone] Lisbet Josue 02/04/2025 11:00 AM CDT Procedure visit [facility] Otolaryngology [address] [place] [address] [address] [place] [address] [place] [address] Peace Graham Au.D. Asymmetrical sensorineural hearing loss (Primary Dx) from Last 3 Months Immunizations Immunization Administration Dates Next Due Influenza, Quadrivalent, Hig h Dose, Preservative Free, Intrr 04/10/2021 Influenza, Trivalent, Adjuva nted, Intramuscular 03/14/2019,03/10/2018 Influenza, Trivalent, High D ose, Split, Preservative Free, Intramuscular 07/08/2017,05/18/2016,02/13/2015 Influenza, Unspecified 01/30/2020 Pneumococcal Conjugate PCV 13 02/13/2015 Pneumococcal Polysaccharide PPV23 05/18/2016 ZOSTER LIVE 02/13/2015 ZOSTER Recombinant 12/16/2017,07/08/2017 Surgical History Surgery Date Site/Laterality Comments APPENDECTOMY SECTION Medical History Medical History Date Comments HL (hearing loss) C. difficile diarrhea Thyroid disease Family History Medical History Relation Name Comments Cancer Father Heart attack Mother Relation Name Status Comments Father Mother Social History Tobacco Use Types Packs/Day Years Used Date Smoking Tobacco: Never Passive Smoke Exposure: Never Smokeless Tobacco: Never Tobacco Cessation:Counseling Given: Not Answered AUDIT-C Answer Date Recorded Q1: How often do you have a drink containing alc ohol? 2-3 times a week 11/19/2024 Q2: How many drinks containi ng alcohol do you have on a typical day when you are drinking? 1 or 2 11/19/2024 Frequency of Binge Drinking Not on file 10/29 Comments No Sex and Gender Information Value Date Recorded Sex Assigned at Not on file Legal Sex Female 7:41 PM HOME COMPANION Gender Identity Not on file Sexual Orientation Not on file Obstetrics History Last Filed Vital Signs Vital Sign Reading Time Taken Comments Blood Pressure 173/79 11/19/2024 11:51 AM CDT Pulse 66 11/19/2024 11:26 AM CDT Temperature 36.9 C (98.5 F) 04/12/2024 2:13 PM HOME COMPANION Respiratory Rate 18 01/26/2021 2:55 PM CDT Oxygen Saturation 97% 11/19/2024 11:26 AM CDT Inhaled Oxygen Concentration - - Weight 69.2 kg (152 lb 9.6 oz) 12/10/2024 11:13 AM CDT Height 162.6 cm (5' 4.02) 11/19/2024 11:26 AM C DT Body Mass Index 26.18 11/19/2024 11:26 AM CDT Plan of Treatment Health Maintenance Due Date Last Done Comments Depression Screening 1950 Hepatitis C Screening 1950 Osteoporosis Screening-Bone Density Scan 1950 DTaP/Tdap/Td Vaccine (1 - Tdap) 08/14/1959 Hepatitis B Screening 1966 Well Visit 65+ 2013 Fall Risk Assessment 01/26/2022 01/26/2021 Influenza Vaccine (#1) 2025 , 01/30/2020, 01/29/2020, Additional history exists Pneumococcal vaccine 65+ Completed 016, 05/18/2016, 02/13/2015 Zoster Vaccine Completed 12/16/2017, 02/0 01/2018, 02/13/2015 Procedures Procedure Name Priority Date/Time Associated Diagnosis Comments AUDBASE RESULTS 02/04/2025 11:11 AM CDT from Last 3 Months Results * AudBase Results (02/04/2025 11:11 AM CDT) us Provider Scanning AUDIOLOGY SERVICES ORDERABLES Final Result from Last 3 Months Additional Health Concerns Infection Onset Date Last Indicated C. difficile 01/20/2021 01/20/2021 Insurance MEDICARE [facility] MEDICARE [employer] SENIOR SUPPLEMENT MEDICARE MEDICARE [employer] SENIOR SUPPLEMENT Advance Directives For more information, please contact: [phone] * Full Code (Latest Code Status on File) Date Activated Date Inactivated Comments 01/21/2021 3:04 AM 01/26/2021 10:08 PM * Full Code Date Activated Date Inactivated Comments 01/06/2021 8:29 PM 01/09/2021 8:35 PM Healthcare Agents on File Name Relationship Healthcare Agent [facility] Rajeev Rocha Spouse Health Care Agent Care Teams Catalogue Illustrator Relationship Specialty Start Date End Date No, Physician PCP - General 11/19/24
--- OUTSIDE RECORDS SUMMARY | 2025-03-27 16:22 | XMS_ITS | Clinical Summary ---
Author Organization [facility] Address [address] [place] [address] Care Team Providers Care Watermelon Inspector Name Role Phone Vitaliy Hdz MD Primary Care Provider [phone] Allergies No known active allergies Medications oxybutynin 5 MG tabletIndicatio ns:bladder leakage Take 0.5 tablets (2.5 mg total) by mouth 2 (two) times daily. Indications: bladder leakage 03/01/20 18 Active sertraline 100 MG tabletIndicatio ns:antidepressa nt Take 1.5 tablets (150 mg total) by mouth daily. Indications: antidepressant 03/01/20 18 Active vitamin B-12 100 MCG tabletIndicatio ns:supplement Take 0.5 tablets (50 mcg total) by mouth daily. Indications: supplement 07/23/19 22 Active buPROPion XL 300 MG 24 hr tabletIndicatio ns:antidepressa nt, smoking cessation Take 1 tablet (300 mg total) by mouth every morning. Indications: antidepressant, smoking cessation 05/20/20 21 Active FYAVOLV 1-5 MG-MCG tabletIndicatio ns:hormone replacement Take 1 tablet by mouth daily. Indications: hormone replacement 06/02/19 21 Active rosuvastatin 5 MG tabletIndicatio ns:cholesterol Take 1 tablet (5 mg total) by mouth daily. Indications: cholesterol 11/19/19 Active biotin 300 MCG TabIndications: with Keratin, 100MG supplement Take 1 tablet (300 mcg total) by mouth daily. Indications: with Keratin, 100MG supplement 07/23/19 22 Active terbinafine 250 MG tabletIndicatio ns:nail fungus Take 1 tablet (250 mg total) by mouth 2 (two) times daily as needed (nail fungus). Indications: nail fungus 07/07/19 Active vitamin D3, cholecalciferol , 5000 UNITS capsuleIndicati ons:supplement Take 1 capsule (125 mcg total) by mouth daily. Indications: supplement Unsure of dose 07/23/19 Active diphenhydrAMINE -APAP 25-500 MG Tab tabletIndicatio ns:Insomnia Take 1 tablet by mouth nightly at bedtime. Indications: Trouble Sleeping 10/16/19 Active benzonatate (TESSALON) 200 MG capsule TAKE 1 CAPSULE BY MOUTH THREE TIMES A DAY NEEDED FOR COUGH 03/12/20 Active azithromycin (ZITHROMAX) 250 MG tablet 03/17/20 Active Active Problems Problem Noted Date Diagnosed Date Status post total right knee replacement 022 Status post total knee replacement 10/13/2021 Primary osteoarthritis of left knee 08/16/2018 Status post right foot surgery 06/23/2018 Hammertoe of right foot 05/31/2018 Hallux valgus (acquired), right foot 05/31/2018 Bunion, right 03/06/2018 Hammer toe 03/06/2018 Francisco's thyroiditis 11/22/2016 Sensorineural hearing loss, asymmetrical 016 Immunizations Immunization Administration Dates Next Due Fluzone High Dose - >Age 65 (Prefilled Syringe) 04/10/2021 Influenza (Generic) 03/14/2019,03/10/2018 Influenza Adult (Generic) 01/30/2020,01/2018,05/18/2016,2014 Pneumococcal (Pneumovax 23) 05/18/2016 Pneumococcal (Prevnar 13) 02/13/2015 Shingrix 12/16/2017,07/08/2017 Zoster (Zostavax) 86505 Unt/0.65Ml 02/13/2015 Family History Medical History Relation Comments No Known Problems Daughter Cancer Father Cancer Lung Cancer Father Cancer Mother Heart attack Heart Attack Mother Cancer Sister breast No Known Problems Son Relation Status Comments Daughter Alive Father (Age 57) lung cancer Mother (Age 57) Mi Sister Son Alive Social History Tobacco Use Types Packs/Day Years Used Date Smoking Tobacco: Never Smokeless Tobacco: Never Tobacco Cessation:Counseling Given: No Comments:Never Smoked Alcohol Use Standard Drinks/Week Comments Yes 2 (1 standard drink = 0.6 oz pur e alcohol) occasional Humiliation, Afraid, Rape, and Kick questionnair e Answer Date Recorded Within the last year, have y ou been afraid of your partner or ex-partner? No 07/21/2021 Within the last year, have y ou been humiliated or emotionally abused in other ways by your partner or ex-partner? No Within the last year, have y ou been kicked, hit, slapped, or otherwise physically hurt by your partner or ex-partner? No 07/21/2021 Within the last year, have y ou been raped or forced to have any kind of sexual activity by your partner or ex-partner? No 07/21/2021 Social Connection and Isolation Panel Answer Date Recorded In a typical week, how many times do you talk on the phone with family, friends, or neighbors? More than three times a week 07/21/2021 How often do you get togethe r with friends or relatives? More than three times a week 07/21/2021 How often do you attend [facility] or samaritan services? Patient declined 07/21/2021 Do you belong to any clubs o r organizations such as adventism groups, unions, fraternal or athletic groups, or school groups? Patient declined 07/21/2021 How often do you attend meet ings of the clubs or organizations you belong to? Patient declined 07/21/2021 Are you , , di vorced, , never , or living with a partner? 07/21/2021 AUDIT-C Answer Date Recorded Q1: How often do you have a drink containing alc ohol? Monthly or less 07/21/2021 Q2: How many drinks containi ng alcohol do you have on a typical day when you are drinking? 1 or 2 07/21/2021 Q3: How often do you have si x or more drinks on one occasion? Never 07/21/2021 Overall Financial Resource Strain (CARDIA) Answe r Date Recorded How hard is it for you to pa y for the very basics like food, housing, medical care, and heating? Not hard at all 07/21/2021 PHQ-2 Answer Date Recorded Patient Health Questionnaire-2 Score 0 09/27/2022 [facility] of Occupat ional [facility] - Occupational Stress Questionnaire Answer Date Recorded Do you feel stress - tense, restless, nervous, or anxious, or unable to sleep at night because your mind is troubled all the time - these days? Only a little 07/21/2021 Exercise Vital Sign Answer Date Recorde d On average, how many days pe r week do you engage in moderate to strenuous exercise (like a brisk walk)? 0 days 07/21/2021 On average, how many minutes do you engage in exercise at this level? 0 min 07/21/2021 Hunger Vital Sign Answer Date Recorded Within the past 12 months, y ou worried that your food would run out before you got the money to buy more. Never true 07/21/19 22 Within the past 12 months, t he food you bought just didn't last and you didn't have money to get more. Never true 07/21/2021 PRAPARE - Transportation Answer Date Re corded In the past 12 months, has l ack of transportation kept you from medical appointments or from getting medications? No 07/01 In the past 12 months, has l ack of transportation kept you from meetings, work, or from getting things needed for daily living? No 07/21/2021 Housing Stability Vital Sign Answer Homer e Recorded In the last 12 months, was t here a time when you were not able to pay the mortgage or rent on time? No 07/21/2021 In the last 12 months, how many places have you lived? 1 07/21/2021 In the last 12 months, was t here a time when you did not have a steady place to sleep or slept in a longterm (including now)? No 07/21/2021 Comments No Sex and Gender Information Value Date Recorded Sex Assigned at Not on file Legal Sex Female 4:46 PM CDT Gender Identity Female 05/25/2021 2:31 PM ACCOUNT MANAGER RELIEF Sexual Orientation Straight 05/25/2021 2: 31 PM ACCOUNT MANAGER RELIEF Last Filed Vital Signs Vital Sign Reading Time Taken Comments Blood Pressure 128/84 09/27/2022 1:16 PM CDT Pulse 78 09/27/2022 1:16 PM CDT Temperature 37.4 C (99.3 F) 09/27/2022 1:16 PM CDT Respiratory Rate 20 12/07/2021 10:43 AM CDT Oxygen Saturation 100% 09/27/2022 1:16 PM CDT Inhaled Oxygen Concentration - - Weight 71.2 kg (157 lb) 09/27/2022 1:16 PM CDT Height 162.6 cm (5' 4) 09/27/2022 1:16 PM CDT Body Mass Index 26.95 09/27/2022 1:16 PM CDT Plan of Treatment Health Maintenance Due Date Last Done Comments Hepatitis C 1968 DTaP, Tdap and Td Vaccines (1 - Tdap) 08/14/1967 Annual Medicare Wellness Visit 2013 Dexa Scan (General) 2013 RSV Immunization or 60+ Years (1 - 1-dose 75+ series) 08/14/2023 COVID-19 Vaccine ( season) 2025 04/10/2021, 08/22/2020, 07/25/2020 Influenza Adult (#1) 2025 04/10/2021, 01/30/2020, 03/14/2019, Additional history exists Pneumococcal Vaccine: 50+ Years Completed 05/18/2016, 02/13/2015 Zoster Vaccines Completed 12/16/2017, 01/2018, 02/13/2015 Hepatitis A Vaccines Aged Out No long er eligible based on patient's age to complete this topic Meningococcal B Vaccine Aged Out No l onger eligible based on patient's age to complete this topic Meningococcal Vaccine Aged Out No keyona kelechi eligible based on patient's age to complete this topic RSV Immunizations Under 20 Months Aged Out No longer eligible based on patient's age to complete this topic Goals Goal Patient Goal Type Associated Problems Recent Progress Patient-Stated? Author Safety - demonstrates understanding of home safety measures General No Nessa Hawkins RN Medical Devices Implanted Type Area Pasteurizer Helper Device Identifier Shelf Expiration Date Model / Serial / Lot Cement Full Dose - [id number] Implanted:Qty: 2 on 07/21/2021 by Herb Wolfe MD at [facility] [employer] Cement Implant Left: Knee [employer] - DIV ILIR DOTTIE 07/21/2023 6191-1-010 / / [id number] Cement Full Dose - [id number] Implanted:Qty: 2 on 10/13/2021 by Herb Wolfe MD at [facility] Cement Implant Right: Knee [employer] - DIV ILIR DOTTIE [id number] 12/28/2023 6191-1-001 / / [id number] Tibia Stemmed Base Liana Persona Size C Left - [id number] Implanted:Qty: 1 on 07/21/2021 by Herb Wolfe MD at [facility] Knee Components Left: Knee [employer] [id number] 03/26/2030 [id number] / / [id number] Surface Articular Liana Persona 10mm Left - [id number] Implanted:Qty: 1 on 07/21/2021 by Herb Wolfe MD at [facility] Knee Components Left: Knee [employer] [id number] 1 11/09/2028 [id number] / / [id number] Tibia Stemmed Base Liana Persona Size C Right - [id number] Implanted:Qty: 1 on 10/13/2021 by Herb Wolfe MD at [facility] Knee Components Right: Tibia [employer] [id number] 04/26/2031 [id number] / / [id number] Surface Articular Liana Persona 10mm Right - [id number] Implanted:Qty: 1 on 10/13/2021 by Herb Wolfe MD at [facility] Knee Components Right: Tibia [employer] [id number] 09/22/2028 [id number] / / [id number] Persona Femur Cemented Posterior Stabilized Narrow Implanted:Qty: 1 on 10/13/2021 by Herb Wolfe MD at [facility] Knee Components Right: Femur [employer] [id number] 04/19/2030 [id number] / / [id number] K-Wire Implanted:Qty: 1 on 06/15/2018 by Herb Wolfe MD at [facility] Wire Right: Foot Dynanite Nitinol Staple With Instrumentation Implanted:Qty: 1 on 06/15/2018 by Herb Wolfe MD at [facility] Right: Foot [employer] 11/26/2022 [id number] / / [id number] K-Wire Implanted:Qty: 1 on 06/15/2018 by Herb Wolfe MD at [facility] Right: Foot Femur Implanted:Qty: 1 on 07/21/2021 by Herb Wolfe MD at [facility] Left: Knee [employer] [id number] 06/29/2030 [id number] / / [id number] Additional Health Concerns Infection Onset Date Last Indicated MRSA Comment:07/18/21 +MRSA Nasal 07/19/2021 07/19/2021 Insurance MEDICARE [facility] Advance Directives * Full Code (Latest Code Status on File) Date Activated Date Inactivated Comments 10/15/2021 11:28 AM * Full Code Date Activated Date Inactivated Comments 10/13/2021 7:47 PM 10/14/2021 5:44 PM * Full Code Date Activated Date Inactivated Comments 07/25/2021 2:50 PM 09/23/2021 12:17 PM * Full Code Date Activated Date Inactivated Comments 07/21/2021 6:21 PM 07/22/2021 3:06 PM Care Teams Watermelon Inspector Relationship Specialty Start Date End Date Vitaliy Hdz MD [address] [place] [address] PCP - General INTERNAL MEDICINE 07/21/21
== END 2025-03-27 14:22 | disposition home or self-care (01) ==
LOC: ANHFOHIMG 14:28
PROVIDERS: PCP Family Medicine; Visit Provider Obstetrics & Gynecology Gynecology
DX: Z12.31 Encounter for screening mammogram for malignant neoplasm of breast (principal)
CPT/HCPCS: 77063; 77067

== ENCOUNTER 2025-04-17 13:17 | Outpatient (CLI) | payer MEDICARE, SELFPAY ==
--- NOTE | 2025-04-17 14:30 | NEURO_ITS ---
Impression: # Non-diabetic complains of severe nocturnal paresthesia. ? # Severe Carpal Tunnel Syndrome, right more than left. ? # Right Ulnar Neuropathy around the elbow ? # Needle/ EMG exam abnormal. Nerve Conduction Studies ?Stim Site NR Peak (ms) P-T Amp (?V) Site1 Site2 Delta-P (ms) Dist (cm) Daniel (m/s) Left Median Anti Sensory (2-3nd Digit)??? NO RESPONSE Wrist NR Wrist 2-3nd Digit 14.0 Wrist ? 12.7 6.9 Wrist 2-3nd Digit 14.0 Right Median Anti Sensory (2-3nd Digit)??? NO RESPONSE Wrist NR Wrist 2-3nd Digit 14.0 Wrist NR Wrist 2-3nd Digit 14.0 Left Radial Anti Sensory (Base 1st Digit)??? NO RESPONSE Wrist NR Wrist Base 1st Digit 0.0 Right Radial Anti Sensory (Base 1st Digit) Wrist ? 13.5 18.4 Wrist Base 1st Digit 13.5 0.0 Left Ulnar Anti Sensory (5th Digit) Wrist ? 3.3 13.0 Wrist 5th Digit 3.3 14.0 42 Right Ulnar Anti Sensory (5th Digit) Wrist ? 3.3 11.3 Wrist 5th Digit 3.3 14.0 42 ?Stim Site NR Onset (ms) O-P Amp (mV) Site1 Site2 Delta-0 (ms) Dist (cm) Daniel (m/s) Left Median Motor (Abd Poll Brev) Wrist ? 6.3 1.3 Elbow Wrist 6.1 28.0 46 Elbow ? 12.4 1.2 Right Median Motor (Abd Poll Brev) Wrist ? 8.0 2.0 Elbow Wrist 6.3 28.0 44 Elbow ? 14.3 1.9 Left Ulnar Motor (Abd Dig Minimi) Wrist ? 3.4 6.9 A Elbow Wrist 5.6 31.0 55 A Elbow ? 9.0 4.4 B Elbow Wrist 3.7 22.0 59 B Elbow ? 7.1 4.3 Right Ulnar Motor (Abd Dig Minimi) Wrist ? 2.3 2.6 A Elbow Wrist 5.8 29.0 50 A Elbow ? 8.1 2.5 B Elbow Wrist 4.0 20.0 50 B Elbow ? 6.3 2.4 F Wave Studies ?NR F-Lat (ms) L-R F-Lat (ms) Left Median (Mrkrs) (Abd Poll Brev) ? 30.68 3.18 Right Median (Mrkrs) (Abd Poll Brev) ? 33.86 3.18 Left Ulnar (Mrkrs) (Abd Dig Min) ? 30.63 0.92 Right Ulnar (Mrkrs) (Abd Dig Min) ? 29.71 0.92 Electromyography ?Side Muscle Nerve Root Ins Act Fibs Amp Dur Recrt Comment Right 1stDorInt Ulnar C8-T1 Nml Nml Nml >12ms +1 Left 1stDorInt Ulnar C8-T1 Nml Nml Nml >12ms +1 Right ABD Dig Min Ulnar C8-T1 Nml Nml Nml Nml Nml Left ABD Dig Min Ulnar C8-T1 Nml Nml Nml Nml Nml Left Abd Poll Brev Median C8-T1 Nml Nml Nml >12ms +1 Right Abd Poll Brev Median C8-T1 Nml Nml Nml >12ms +1 Right Abd Poll Long Radial (Post Int) C7-8 Nml Nml Nml Nml Nml Left Abd Poll Long Radial (Post Int) C7-8 Nml Nml Nml Nml Nml Left BrachioRad Radial C5-6 Nml Nml Nml Nml Nml Right BrachioRad Radial C5-6 Nml Nml Nml Nml Nml Right Ext Digitorum Radial (Post Int) C7-8 Nml Nml Nml Nml Nml Left Ext Digitorum Radial (Post Int) C7-8 Nml Nml Nml Nml Nml Left Ext Indicis Radial (Post Int) C7-8 Nml Nml Nml Nml Nml Right Ext Indicis Radial (Post Int) C7-8 Nml Nml Nml Nml Nml Left FlexPolLong Median (Ant Int) C7-8 Nml Nml Nml Nml Nml Right FlexPolLong Median (Ant Int) C7-8 Nml Nml Nml Nml Nml Right PronatorTeres Median C6-7 Nml Nml Nml Nml Nml Left PronatorTeres Median C6-7 Nml Nml Nml Nml Nml
--- OUTSIDE RECORDS SUMMARY | 2025-04-17 19:46 | XMS_ITS | Encounter Summary ---
Author Organization [facility] Address [address] [place] [address] Care Team Providers Care Heel Seat Sander Name Role Phone Jose Luis Baig MD Primary Care Provider [phone] Vitaliy Hdz MD Primary Care Provider [phone] Encounter Details Date Type Department Care Team (Latest Contact Info) Description 04/04/2018 Abstract [facility] , Yuriy Mullins MD Social History Tobacco Use Types Packs/Day Years Used Date Smoking Tobacco: Never Assessed Comments Unknown Sex and Gender Information Value Date Recorded Sex Assigned at Not on file Legal Sex Female 4:46 PM CDT Gender Identity Female 05/25/2021 2:31 PM COLLECTION CORRESPONDENT Sexual Orientation Straight 05/25/2021 2: 31 PM COLLECTION CORRESPONDENT documented as of this encounter Plan of Treatment Not on file documented as of this encounter Visit Diagnoses Not on filedocumented in this encounter Additional Health Concerns Infection Onset Date Last Indicated Resolved Time MRSA Comment: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
--- OUTSIDE RECORDS SUMMARY | 2025-04-17 19:46 | XMS_ITS | Clinical Summary ---
Author Organization [facility] Address [address] [place] [address] Care Team Providers Care Lens Assorter Name Role Phone Vitaliy Hdz MD Primary Care Provider [phone] Allergies No known active allergies Medications oxybutynin [...] (Prevnar 13) 02/13/2015 Shingrix 12/16/2017,07/08/2017 Zoster (Zostavax) 61970 Unt/0.65Ml 02/13/2015 Family History Medical History Relation [...] week 07/21/2021 How often do you attend [facility] or anglican services? Patient declined 07/21/2021 Do you belong to any clubs o r organizations such as synagogue groups, unions, fraternal or athletic groups, or [...] Recorded Patient Health Questionnaire-2 Score 0 09/27/2022 [facility] of Occupat ional [facility] - Occupational Stress Questionnaire Answer Date Recorded [...] place to sleep or slept in a residential (including now)? No 07/21/2021 Comments No Sex and Gender Information Value Date Recorded Sex Assigned at Not on file Legal Sex Female 4:46 PM CDT Gender Identity Female 05/25/2021 2:31 PM DESIGNATED BROKER Sexual Orientation Straight 05/25/2021 2: 31 PM DESIGNATED BROKER Last Filed Vital Signs Vital Sign Reading [...] Hawkins RN Medical Devices Implanted Type Area Recruitment Manager Device Identifier Shelf Expiration Date Model / Serial / Lot Cement Full Dose - [id number] Implanted:Qty: 2 on 07/21/2021 by Herb Wolfe MD at [facility] [employer] Cement Implant Left: Knee [employer] - DIV ILIR DOTTIE 07/21/2023 6191-1-010 / / [id number] Cement Full Dose - [id number] Implanted:Qty: 2 on 10/13/2021 by Herb Wolfe MD at [facility] Cement Implant Right: Knee [employer] - DIV ILIR DOTTIE [id number] 12/28/2023 6191-1-001 / / [id number] Tibia Stemmed Base Liana Persona Size C Left - [id number] Implanted:Qty: 1 on 07/21/2021 by Herb Wolfe MD at [facility] Knee Components Left: Knee [employer] [id number] 03/26/2030 [id number] / / [id number] Surface Articular Liana Persona 10mm Left - [id number] Implanted:Qty: 1 on 07/21/2021 by Herb Wolfe MD at [facility] Knee Components Left: Knee [employer] [id number] 1 11/09/2028 [id number] / / [id number] Tibia Stemmed Base Liana Persona Size C Right - [id number] Implanted:Qty: 1 on 10/13/2021 by Herb Wolfe MD at [facility] Knee Components Right: Tibia [employer] [id number] 04/26/2031 [id number] / / [id number] Surface Articular Liana Persona 10mm Right - [id number] Implanted:Qty: 1 on 10/13/2021 by Herb Wolfe MD at [facility] Knee Components Right: Tibia [employer] [id number] 09/22/2028 [id number] / / [id number] Persona Femur Cemented Posterior Stabilized Narrow Implanted:Qty: 1 on 10/13/2021 by Herb Wolfe MD at [facility] Knee Components Right: Femur [employer] [id number] 04/19/2030 [id number] / / [id number] K-Wire Implanted:Qty: 1 on 06/15/2018 by Herb Wolfe MD at [facility] Wire Right: Foot Dynanite Nitinol Staple With Instrumentation Implanted:Qty: 1 on 06/15/2018 by Herb Wolfe MD at [facility] Right: Foot [employer] 11/26/2022 [id number] / / [id number] K-Wire Implanted:Qty: 1 on 06/15/2018 by Herb Wolfe MD at [facility] Right: Foot Femur Implanted:Qty: 1 on 07/21/2021 by Herb Wolfe MD at [facility] Left: Knee [employer] [id number] 06/29/2030 [id number] / / [id number] Additional Health Concerns Infection Onset Date Last Indicated MRSA Comment:07/18/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 Nasal 07/19/2021 07/19/2021 Insurance MEDICARE [facility] Advance Directives * Full Code (Latest Code Status on File) Date Activated Date Inactivated Comments 10/15/2021 11:28 AM * Full Code Date Activated Date Inactivated Comments 10/13/2021 7:47 PM 10/14/2021 5:44 PM * Full Code Date Activated Date Inactivated Comments 07/25/2021 2:50 PM 09/23/2021 12:17 PM * Full Code Date Activated Date Inactivated Comments 07/21/2021 6:21 PM 07/22/2021 3:06 PM Care Teams Lens Assorter Relationship Specialty Start Date End Date Vitaliy Hdz MD [address] [place] [address] PCP - General INTERNAL MEDICINE 07/21/21
--- OUTSIDE RECORDS SUMMARY | 2025-04-17 19:46 | XMS_ITS | Clinical Summary ---
Author Organization [facility] Address [address] [place] [address] Care Team Providers Care Aerospace Project Manager Name Role Phone No, Physician Primary Care Provider Allergies No known active allergies Medications aspirin/acetami [...] Type Department Care Team Description 03/12/2025 Treatment [facility] Medicine Otolaryngology [address] [place] [address] [address] [place] [phone] Lisbet Josue Sensorineural hearing loss (SNHL) of both ears (Primary Dx) 03/05/2025 Telephone [facility] Otolaryngology [address] [place] [address] [address] [place] [phone] Lisbet Josue 02/04/2025 11:00 AM CDT Procedure visit [facility] Medicine Otolaryngology [address] [place] [address] [address] [place] [address] [place] [address] Peace Graham Au.D. Asymmetrical sensorineural hearing loss [...] on file Legal Sex Female 7:41 PM MANAGER MARITIME Gender Identity Not on file Sexual Orientation Not on file Last Filed Vital Signs Vital Sign Reading Time Taken Comments Blood Pressure 173/79 11/19/2024 11:51 AM CDT Pulse 66 11/19/2024 11:26 AM CDT Temperature 36.9 C (98.5 F) 04/12/2024 2:13 PM MANAGER MARITIME Respiratory Rate 18 01/26/2021 2:55 PM CDT [...] 016, 05/18/2016, 02/13/2015 Zoster Vaccine Completed 12/16/2017, 020 01/2018, 02/13/2015 Procedures Procedure Name Priority Date/Time Associated Diagnosis Comments AUDBASE RESULTS 02/04/2025 11:11 AM CDT from Last 3 Months Results * AudBase Results (02/04/2025 11:11 AM CDT) us Provider Scanning AUDIOLOGY SERVICES ORDERABLES Final Result from Last 3 Months Additional Health Concerns Infection Onset Date Last Indicated C. difficile 01/20/2021 01/20/2021 Insurance [facility] MEDICARE [employer] SENIOR SUPPLEMENT MEDICARE MEDICARE [employer] SENIOR SUPPLEMENT Advance Directives For more information, please contact: [phone] * Full Code (Latest Code Status on File) Date Activated Date Inactivated Comments 01/21/2021 3:04 AM 01/26/2021 10:08 PM * Full Code Date Activated Date Inactivated Comments 01/06/2021 8:29 PM 01/09/2021 8:35 PM Healthcare Agents on File Name Relationship Healthcare Agent [facility] Communication Rajeev Rocha Spouse Health Care Agent Care Teams Aerospace Project Manager Relationship Specialty Start Date End Date No, Physician PCP - General 11/19/24
== END 2025-04-17 13:18 | disposition home or self-care (01) ==
PROVIDERS: PCP Family Medicine; Visit Provider Nurse Practitioner Family
DX: R20.0 Anesthesia of skin (principal); R20.2 Paresthesia of skin; G56.03 Carpal tunnel syndrome, bilateral upper limbs; G56.21 Lesion of ulnar nerve, right upper limb
CPT/HCPCS: 95886; 95911